=== PATIENT | female | born 1990 | race Caucasian/White ===

== ENCOUNTER 2018-04-21 00:43 | Outpatient (CLI) | payer BC, SELFPAY ==
--- NOTE | 2018-04-21 13:48 | DI.US_ITS ---
SYMPTOMS/DIAGNOSIS: LEFT BREAST LUMP/MASS, N63.20 LEFT BREAST ULTRASOUND: Targeted left breast ultrasound was performed. There are scattered foci of breast tissue seen in the left breast at the 12 o'clock position 2 cm from the nipple. There is an ovoid, hypoechoic, radially oriented avascular nodule present. This has a benign appearance. This may represent isolated breast tissue. A fibroadenoma cannot be excluded. Note is also made of a 0.4 x 0.3 x 0.2 cm cyst at the 1 o'clock position 1 cm from the nipple. No suspicious cystic or solid masses are seen sonographically. The findings were discussed with the patient on the date of the examination. IMPRESSION: 1. No suspicious cystic or solid masses seen sonographically. 2. Benign-appearing hypoechoic ovoid nodular area at the 12 o'clock position 2 cm from the nipple. Differential considerations include foci of isolated breast tissue versus a benign lesion such as a fibroadenoma. 3. A 0.4 cm cyst at the 1 o'clock position of the left breast. The findings were discussed with the patient on the date of the examination.
== END 2018-04-21 01:03 ==
PROVIDERS: PCP Physician Assistant Medical; Visit Provider Nurse Practitioner Family
DX: N63.20 Unspecified lump in the left breast, unspecified quadrant (principal); N60.02 Solitary cyst of left breast; D24.2 Benign neoplasm of left breast
CPT/HCPCS: 76642

== ENCOUNTER 2018-09-15 11:44 | Outpatient (REF) | payer BC, SELFPAY ==
--- NOTE | 2018-09-15 11:00 | PAPFT_PTH ---
PATIENT: Torrie De La O LOC: [facility] U#:[id number] AGE/SX: 27/F ROOM: RE09/15/[address]: FIDELINA Boles : 1990 BED: DIS: 09/15/2018 SPEC #: [id number] RECD: 09/15/18 13:10 STATUS: CHELSEA RELisa #: [id number] KHALIDA: 09/15/18 11:[address]: Yadi Anders DEPT: [facility] Cytology RECD BY: Sommer Romero ENTERED: 09/15/18 13:10 SP TYPE: PAPFT OTHR DR: Brianna Patricio Tissues: 1 - CX/ENDOCX FOR PAP SMEARS Procedures: PAP THIN PREP/UVM Screening Comments: [id number]
== END 2018-09-15 12:04 ==
LOC: LBN 11:44
PROVIDERS: PCP Physician Assistant Medical; Visit Provider Nurse Practitioner Family
DX: Z12.4 Encounter for screening for malignant neoplasm of cervix (principal)
CPT/HCPCS: 88142

== ENCOUNTER 2019-09-30 12:01 | Outpatient (CLI) | payer BC, SELFPAY ==
[2019-09-30 12:36] LABS: Abs Immature Grans 0.02 k/cumm (0.0-0.09); Absolute Basophil Count 0.01 k/cumm (0.0-0.2); Absolute Eosinophil Count 0.07 k/cumm (0.0-0.7); Absolute Lymphocyte Count 1.67 k/cumm (1.2-3.4); Absolute Monocyte Count 0.57 k/cumm (0.11-0.7); Absolute Neutrophil Count 6.19 k/cumm (1.2-6.7); Basophils % 0.1; Eosinophils % 0.8; HCT 39.9 % (36.0-46.0); HGB 13.2 g/dL (12.0-15.5); Immature Grans % 0.2 %; Lymphocytes % 19.6; Mean Corp. HGB Concentration 33.1 g/dL (32.0-36.0); Mean Corpuscular Hemoglobin 30.8 pg (27.0-33.0); Mean Platelet Volume 10.2 fL (8.0-11.0); Monocytes % 6.7; Neutrophils % 72.6; Platelet Count 304 x1000/uL (130-400); RBC 4.29 m/cumm (4.00-5.20); RBC Distribution Width 12.9 % (11.7-14.6); White Blood Cell Count 8.53 k/cumm (4.4-10.8)
[2019-09-30 14:07] LABS: TSH (W/Ref FT4) 1.08 uIU/mL (0.36-3.74)
[2019-09-30 14:32] LABS: *AMPHETAMINES SCREEN URINE Negative (Negative); *BARBITURATES SCREEN URINE Negative (Negative); *BENZODIAZEPINES SCREEN URINE Negative (Negative); Cannabinoids THC Negative (Negative); Cocaine Screen,Urine Negative (Negative); METHADONE URINE SCREEN Negative (Negative); OPIATES URINE SCREEN Negative (Negative)
[2019-09-30 14:33] LABS: Tricyclic Antidepressants Negative (Negative)
[2019-10-01 09:30] LABS: Hepatitis B Surface Ag Negative (Negative)
[2019-10-01 10:09] LABS: HIV-1/2 Ag & Ab Screen Negative (Negative)
[2019-10-01 10:23] LABS: Hepatitis C Ab w Rflx HCV PCR Negative (Negative)
[2019-10-01 11:24] LABS: Varicella IgG Antibody Positive (See Note)
[2019-10-01 11:28] LABS: Rubella IgG Ab (UVM) Positive (See Note)
[2019-10-02 14:12] LABS: Syphilis Total Ab w/Reflex Nonreactive (Nonreactive)
[2019-10-06 16:34] LABS: Buprenorphine Negative; Norbuprenorphine Negative
== END 2019-09-30 12:21 ==
PROVIDERS: PCP Nurse Practitioner Family; Visit Provider Advanced Practice Midwife
DX: Z34.91 Encounter for supervision of normal pregnancy, unspecified, first trimester (principal); Z11.59 Encounter for screening for other viral diseases; Z11.4 Encounter for screening for human immunodeficiency virus [HIV]; Z01.84 Encounter for antibody response examination
CPT/HCPCS: 36415; 80307; 86787; 86803; 86850; 86900; 86901; 87340; 87389; 84443; 85025; 86762; 86780

== ENCOUNTER 2019-10-06 02:14 | Outpatient (CLI) | payer BC, SELFPAY ==
[2019-10-06 09:08] LABS: HGB 13.4 g/dL (12.0-15.5); Mean Corp. HGB Concentration 33.5 g/dL (32.0-36.0); Mean Corpuscular Hemoglobin 30.9 pg (27.0-33.0); Mean Corpuscular Volume 92.4 fL (80-95); Mean Platelet Volume 9.9 fL (8.0-11.0); Platelet Count 333 x1000/uL (130-400); RBC 4.33 m/cumm (4.00-5.20); RBC Distribution Width 12.6 % (11.7-14.6); White Blood Cell Count 7.79 k/cumm (4.4-10.8)
[2019-10-06 09:10] LABS: Glucose,1 Hr (Glucola) 85 mg/dL (80-140)
== END 2019-10-06 02:34 ==
PROVIDERS: PCP Nurse Practitioner Family; Visit Provider Advanced Practice Midwife
DX: Z34.91 Encounter for supervision of normal pregnancy, unspecified, first trimester (principal)
CPT/HCPCS: 36415; 82950; 85027

== ENCOUNTER 2019-11-05 13:29 | Outpatient (REF) | payer BC, SELFPAY ==
[2019-11-06 14:11] LABS: Chlamydia Result Negative (Negative); GC Result Negative (Negative)
== END 2019-11-05 13:49 ==
LOC: LBN 13:29
PROVIDERS: PCP Nurse Practitioner Family; Visit Provider Obstetrics & Gynecology
DX: Z11.3 Encounter for screening for infections with a predominantly sexual mode of transmission (principal)
CPT/HCPCS: 87491; 87591

== ENCOUNTER 2019-12-04 04:29 | Outpatient (CLI) | payer BC, SELFPAY ==
--- NOTE | 2019-12-04 06:30 | DI.US_ITS ---
EXAM: US OB 2-3 TRIMESTER CLINICAL HISTORY: anatomy, , Z34.90. TECHNIQUE: Transabdominal obstetrical ultrasound performed. COMPARISON: No exams were available for comparison FINDINGS: Transabdominal obstetrical ultrasound performed. FINDINGS: Number of fetuses: One. position: Varied heart rate: 160 bpm. Placental location: Posterior. No evidence of previa. BIOMETRIC DATA: Composite Age: 20 weeks 2 days EDC: 04/20/2020 Amniotic fluid index: Amount of fluid is within normal limits. ANATOMICAL SURVEY: Within normal limits. IMPRESSION: 1. Single live intrauterine gestation as above. 2. Normal anatomic survey. DATA REPOSITORY:
== END 2019-12-04 04:49 ==
PROVIDERS: PCP Nurse Practitioner Family; Visit Provider Obstetrics & Gynecology
DX: Z34.92 Encounter for supervision of normal pregnancy, unspecified, second trimester (principal)
CPT/HCPCS: 76805; 87086

== ENCOUNTER 2019-12-04 14:43 | Outpatient (REF) | payer BC, SELFPAY | END 2019-12-04 15:03 | LOC: LBN 14:43 | PROVIDERS: PCP Nurse Practitioner Family; Visit Provider Obstetrics & Gynecology | DX: R82.90 Unspecified abnormal findings in urine (principal) | CPT/HCPCS: 87086 ==

== ENCOUNTER 2020-01-14 02:41 | Outpatient (CLI) | payer BC, SELFPAY ==
[2020-01-14 16:27] LABS: Abs Immature Grans 0.03 10^3/uL (0.0-0.06); Absolute Basophil Count 0.01 10^3/uL (0.0-0.2); Absolute Eosinophil Count 0.09 10^3/uL (0.0-0.7); Absolute Lymphocyte Count 1.59 10^3/uL (1.2-3.4); Absolute Monocyte Count 0.61 10^3/uL (0.1-0.8); Absolute Neutrophil Count 6.66 10^3/uL (1.2-6.7); Basophils % 0.1; HCT 32.6 % (36.0-46.0); HGB 10.8 g/dL (11.2-15.7); Immature Grans % 0.3; Lymphocytes % 17.7; MCH 31.2 pg (27.0-33.0); MCHC 33.1 % (32.0-36.0); MCV 94.2 fL (80-95); Monocytes % 6.8; Neutrophils % 74.1; Nucleated RBC 0 %; Platelet Count 274 10^3/uL (130-400); RBC 3.46 10^6/uL (3.93-5.22); RDW 12.8 % (11.7-14.6); RDW-SD 44.3 fL; WBC 8.99 10^3/uL (4.4-10.8)
[2020-01-14 16:39] LABS: Glucose,1 Hr (Glucola) 117 mg/dL (80-140)
== END 2020-01-14 03:01 ==
PROVIDERS: PCP Nurse Practitioner Family; Visit Provider Obstetrics & Gynecology
DX: Z34.92 Encounter for supervision of normal pregnancy, unspecified, second trimester (principal)
CPT/HCPCS: 36415; 82950; 85025

== ENCOUNTER 2020-02-01 02:16 | Outpatient (CLI) | payer BC, SELFPAY ==
--- NOTE | 2020-02-01 06:15 | DI.US_ITS ---
EXAM: US OB MATHEUS WEIGHT CLINICAL HISTORY: Size greater than dates,z34.90. TECHNIQUE: Transabdominal obstetrical ultrasound performed. COMPARISON: US US OB 2-3 TRIMESTER from 12/04/2019 FINDINGS: Transabdominal obstetrical ultrasound performed. FINDINGS: Number of fetuses: One. position: Cephalic. Placental location: Posterior. No evidence of previa. BIOMETRIC DATA: EFW: 1424 grms 89% Composite Age: 29 weeks 5 days EDC: 04/13/2020 Heart Rate: 147BPM Amniotic fluid index: 18.8 cm. Visually, amount of fluid is within normal limits. IMPRESSION: 1. Single live intrauterine gestation as above. 2. Estimated weight is 1424gms. 3. Amniotic fluid index is 18.8 cm. Visually within normal limits. DATA REPOSITORY:
== END 2020-02-01 02:36 ==
PROVIDERS: PCP Nurse Practitioner Family; Visit Provider Obstetrics & Gynecology
DX: Z34.93 Encounter for supervision of normal pregnancy, unspecified, third trimester (principal)
CPT/HCPCS: 76816

== ENCOUNTER 2020-03-23 08:32 | Outpatient (CLI) | payer BC, SELFPAY ==
--- OUTSIDE RECORDS SUMMARY | 2020-03-23 08:36 | XMS_ITS ---
:1990 External Reference #:[id number] Author Care Team Providers Name Role Phone Andrei Primary Care Provider Unavailable Allergies Code Code System Name Reaction Severity Status Onset [place] Abdominal Pain Moderate Active ? Pecan Nut Hives Moderate Active ? Medications Name Status Start Date Stop Date ? ? amoxicillin 875 mg-potassium clavulanate Active ? Not available 125 mg tablet fexofenadine 60 mg tablet Active ? Not av ailable fluticasone propionate 50 mcg/actuation Active ? Not available nasal spray,suspension [place] (28) 0.15 mg-0.03 mg tablet Active ? Not available naproxen 500 mg tablet Active ? Not avail able ranitidine 150 mg tablet Active ? Not mariano ilable sertraline 50 mg tablet Active ? Not avai lable sumatriptan 100 mg tablet Active ? Not av ailable Problems Name Status Onset Date Source ? Eczema Active 12/31/2017 ? Fatigue Active 12/31/2017 ? Eruption Active 12/31/2017 ? Headache Active 01/30/2018 ? Dietary Management Surveillance Active 01/30/2018 ? Hyperlipidemia Active 05/05/2018 ? Fibrocystic Disease of Breast Active 05/05/2018 ? Procedures None recorded. Results Lab Results None recorded. Past Encounters None recorded. Social History Tobacco Smoking Status Never Smoker Vaccine List Vaccine Type Hep A, pediatric, unspecified formulatio n 04/01/1995 Hep B, adolescent/high risk 04/01/1996 Hep C 04/01/1996 HPV9 09/29/2000 MMR 09/29/2006 Plan of Care Reminders Provider Appointments None ? ? recorded. Lab None ? ? recorded. Referral None ? ? recorded. Procedures None ? ? recorded. Surgeries None ? ? recorded. Imaging None ? ? recorded. Vitals 03/13/2018 02:00PM ESTABLISHED PATIENT 30 Height Weight BMI 5 ft 5.5 in 173 lbs 16 oz 28.5 kg/m2 01/30/2018 11:00AM ESTABLISHED PATIENT 45 Height Weight BMI 5 ft 5.5 in 172 lbs 9.6 oz 28.3 kg/m2 12/12/2017 01:00PM NEW PATIENT 90 Height Weight BMI Blood Pressure 5 ft 5.5 in 181 lbs 29.7 kg/m2 120/70 mm[Hg]
[2020-03-23 14:01] VITALS: BP 135/91; PULSE 81; TEMP 36.9
[2020-03-23 14:11] VITALS: BP 135/91; PULSE 81
--- NOTE | 2020-04-27 14:11 | W.OBNST ---
Date of service: 04/27/20 Time of Service: 14:16 NST Evaluation Reason for NST Reasons for Nonstress Test: DECREASED MOVEMENT Gestational Age Gestational Age in Weeks and Days: 40 Weeks and 0Days Test and Monitor Explained Test/Monitor Explained: Test Explained, Monitor Explained and Patient Verbalized Understanding Vital Signs Blood Pressure: 135/91 Pulse: 81 Temperature: 98.4 F Urine Results Urine Protein: Negative Urine Ketones: Negative Urine Glucose: Negative Urine Blood: Negative NST Information Date on Monitor: 03/23/20 Time on Monitor: 14:04 NST Interventions: None and PO Hydration NST Evaluation Patient States Movement: Present Variability: Moderate 6-25 bpm Accelerations: 15x15 Decelerations: None NST Results: Reactive Note NST Note Note: Pt called earlier report decreased movement. She stated that she was feeling very subtle movements and was concerned that there was something wrong with the . Pt is reassured by findings on today's BC visit. She was instructed in movement and kick counts. She will f/u at regularly scheduled appointment. NST Reviewed and Verified by: Lida Odom
[2020-04-27 14:16] VITALS: BP 135/91; PULSE 81; TEMP 36.9
== END 2020-03-23 14:54 ==
LOC: BCD 08:49 → OBS 12:40
PROVIDERS: PCP Nurse Practitioner Family; Visit Provider Obstetrics & Gynecology Gynecology
DX: O36.8130 Decreased fetal movements, third trimester, not applicable or unspecified (principal); Z3A.35 35 weeks gestation of pregnancy
CPT/HCPCS: 59025

== ENCOUNTER 2020-03-30 15:54 | Outpatient (REF) | payer BC, SELFPAY ==
[2020-03-30 16:47] LABS: *AMPHETAMINES SCREEN URINE Negative (Negative); *BARBITURATES SCREEN URINE Negative (Negative); *BENZODIAZEPINES SCREEN URINE Negative (Negative); Cannabinoids THC Negative (Negative); Cocaine Screen,Urine Negative (Negative); METHADONE URINE SCREEN Negative (Negative); OPIATES URINE SCREEN Negative (Negative)
[2020-03-30 16:51] LABS: Tricyclic Antidepressants Negative (Negative)
[2020-04-07 15:42] LABS: Buprenorphine Negative; Norbuprenorphine Negative
== END 2020-03-30 16:14 ==
LOC: LBN 15:54
PROVIDERS: PCP Nurse Practitioner Family; Visit Provider Obstetrics & Gynecology
DX: Z34.93 Encounter for supervision of normal pregnancy, unspecified, third trimester (principal); Z36.85 Encounter for antenatal screening for Streptococcus B; Z3A.36 36 weeks gestation of pregnancy
CPT/HCPCS: 80307; 87081

== ENCOUNTER 2020-04-21 09:52 | Observation (INO) | payer BC, SELFPAY ==
[2020-04-21 10:05] VITALS: BP 110/81; PULSE 99
[2020-04-21 10:06] VITALS: RESP 16; TEMP 37
[2020-04-21 10:17] LABS: HCT 37.9 % (36.0-46.0); HGB 12.8 g/dL (11.2-15.7); MCH 30.9 pg (27.0-33.0); MCHC 33.8 % (32.0-36.0); MCV 91.5 fL (80-95); MPV 10.2 fL (8.0-11.0); Platelet Count 243 10^3/uL (130-400); RBC 4.14 10^6/uL (3.93-5.22); RDW 12.9 % (11.7-14.6); WBC 8.76 10^3/uL (4.4-10.8)
--- NOTE | 2020-04-21 12:26 | PGE_ITS ---
Date of service: 04/21/20 Time of Service: 12:26 Pelvic Exam Dilation: 1 Effacement (%): 25 station: -2 Cervix Position: mid Consistency: medium Vaginal Exam Presentation: Cephalic Pooling: Negative Contractions Monitor Mode: External Contraction Frequency(min): 3 Contraction Duration(sec): 45 Intensity: Mild/Moderate Fetus A Monitor: External (US) Presentation: Cephalic Variability: Moderate (6-25 BPM) Categories: Category I FHR Rhythm: Regular Characteristics: Normal Accelerations: 15 X 15 Decelerations: None Amniotic Membrane Status: Intact Assessment and Plan Assessment and plan (1) : Status: Acute Assessment and plan: Prodromal labor for approximately 4 hours. Minimal cervical change. Patient has been ambulatory. The plan is to have several more hours prior to next cervical check and if unchanged would recommend discharged home with expectant management. Objective Temp Pulse Resp BP 98.6 F 99 H 16 110/81 04/21/20 10:06 04/21/20 10:05 04/21/20 10:06 04/21/20 10:05 Laboratory Results WBC 8.76 10^3/uL (4.4-10.8) 04/21/20 10:10 RBC 4.14 10^6/uL (3.93-5.22) 04/21/20 10:10 Hgb 12.8 g/dL (11.2-15.7) 04/21/20 10:10 Hct 37.9 % (36.0-46.0) 04/21/20 10:10 MCV 91.5 fL (80-95) 04/21/20 10:10 MCH 30.9 pg (27.0-33.0) 04/21/20 10:10 MCHC 33.8 % (32.0-36.0) 04/21/20 10:10 RDW 12.9 % (11.7-14.6) 04/21/20 10:10 Plt Count 243 10^3/uL (130-400) 04/21/20 10:10 MPV 10.2 fL (8.0-11.0) 04/21/20 10:10 Patient ABO/Rh A Positive 04/21/20 10:10 Antibody Screen Negative 04/21/20 10:10 Subjective Patient Reports: New Complaints (Pt currently reports contractions becoming more intense.) Interval history since last seen: Pt is a 29yo G1 female who called the [facility] this morning to report onset of contractions last evening and increasing in intensity and frequency throughout the night. No SROM or vaginal bleeding. On arrival to her cervix was 25% effaced, FT, -2 station, Category FHR tracing with contractions q3-6min. I recommended observation. Interventions Other (No intervention planned at this time.) Results Hemoglobin/Hematocrit: Hgb 12.8 g/dL (11.2-15.7) 04/21/20 10:10 Hct 37.9 % (36.0-46.0) 04/21/20 10:10
--- NOTE | 2020-04-21 14:11 | NUR.NOTE ---
remains on r side with eyes closed. Nursing Note:
--- NOTE | 2020-04-21 14:53 | W.PM.OBNL1 ---
Date of service: 04/21/20 Time of Service: 14:53 Pelvic Exam Dilation: 1 Effacement (%): 25 station: -2 Position: DEDE Cervix Position: mid Consistency: medium Vaginal Exam Presentation: Cephalic Pooling: Negative Contractions Monitor Mode: External Contraction Frequency(min): 3-5 Contraction Duration(sec): 30-60 Fetus A Monitor: External (US) Heart Rate Baseline: 150 Presentation: Cephalic Variability: Moderate (6-25 BPM) Categories: Category I FHR Rhythm: Regular Characteristics: Normal Accelerations: 15 X 15 Decelerations: None Assessment and Plan Assessment and plan (1) False labor after 37 weeks of gestation without delivery: Status: Acute Assessment and plan: Patient experienced contractions mild to moderate in nature throughout the day. Essentially no cervical change. I recommended not admitting the patient and instead having her be discharged to home and we turned to center with contractions every 2 minutes apart for 2 hours. She is agreeable to the plan discharge instructions were given. Objective Temp Pulse Resp BP 98.6 F 99 H 16 110/81 04/21/20 10:06 04/21/20 10:05 04/21/20 10:06 04/21/20 10:05 Laboratory Results WBC 8.76 10^3/uL (4.4-10.8) 04/21/20 10:10 RBC 4.14 10^6/uL (3.93-5.22) 04/21/20 10:10 Hgb 12.8 g/dL (11.2-15.7) 04/21/20 10:10 Hct 37.9 % (36.0-46.0) 04/21/20 10:10 MCV 91.5 fL (80-95) 04/21/20 10:10 MCH 30.9 pg (27.0-33.0) 04/21/20 10:10 MCHC 33.8 % (32.0-36.0) 04/21/20 10:10 RDW 12.9 % (11.7-14.6) 04/21/20 10:10 Plt Count 243 10^3/uL (130-400) 04/21/20 10:10 MPV 10.2 fL (8.0-11.0) 04/21/20 10:10 Patient ABO/Rh A Positive 04/21/20 10:10 Antibody Screen Negative 04/21/20 10:10 Subjective Patient Reports: No new Complaints Interval history since last seen: Continues to report contractions, feels that they are stronger. Results Hemoglobin/Hematocrit: Hgb 12.8 g/dL (11.2-15.7) 04/21/20 10:10 Hct 37.9 % (36.0-46.0) 04/21/20 10:10
== END 2020-04-21 15:10 | disposition home or self-care (01) ==
PROVIDERS: Admitting Provider Obstetrics & Gynecology Gynecology; PCP Nurse Practitioner Family; Visit Provider Obstetrics & Gynecology Gynecology
DX: O47.1 False labor at or after 37 completed weeks of gestation (principal)
CPT/HCPCS: 36415; 85027; 86850; 86900; 86901; G0378

== ENCOUNTER 2020-04-23 01:22 | Inpatient (IN) | payer BC, SELFPAY ==
[2020-04-23] VITALS (53 sets, daily range): BP systolic 106–136; BP diastolic 59–84; PULSE 66–117; RESP 16; TEMP 36.8–37.3; O2SAT 95–100
[2020-04-23] MEDS: Normal Saline Flush 10 ML SYR IVP (02:25)
[2020-04-23 02:53] LABS: HCT 38.2 % (36.0-46.0); HGB 12.9 g/dL (11.2-15.7); MCH 30.9 pg (27.0-33.0); MCHC 33.8 % (32.0-36.0); MCV 91.6 fL (80-95); MPV 10.4 fL (8.0-11.0); Platelet Count 268 10^3/uL (130-400); RBC 4.17 10^6/uL (3.93-5.22); RDW 13.1 % (11.7-14.6); RDW-SD 43.4 fL
--- NOTE | 2020-04-23 03:50 | HPE_ITS ---
Date of service: 04/23/20 Time of Service: 03:50 OB-HPI Labor/Delivery History of Present Illness Reason for Visit: LABOR, regular contractions Chief Complaint: Uterine Contractions. SILVER Calculator Estimated Delivery Date Method Current WG Current Estimate 04/23/20 LMP (Certain) 40w 0d Other Estimates 04/24/20 Ultrasound #1 39w 6d History of Present Expected Delivery Route/Plan - MD FOB/ - [place] (first child) Specific Issues/Plan 1. Recent suicide of patient's father 2. Depression, takes Zoloft 100 mg Rx'ed by PCP x5 yrs 2a. PHQ9 score is 18, recent loss of father to suicide 2b. Pt has names of therapists and is calling to make appt's 3. PA for [place] approved, CF/SMA do not require PA 4. Chronic hemorrhoids, topical remedies discussed 5. Insomnia since became , Vistaril is not helping, adv'ed try Unisom qhs 6. Low dose ASA for nullipara & BMI 31 7. Early and glucola @ 26w nl. No further testing needed. Review of Systems Narrative: Patient is a 29-year-old female primigravida at her due date today. She has been in a latent labor for approximately 48 hours with irregular contractions. Earlier this morning, contractions became more regular approximately 2 to 3 minutes. On presentation she was approximately 3 cm more recently checked 4 cm 80% -2 station anterior soft and vertex. She has a reassuring maternal status with a category 1 heart rate tracing All systems reviewed & are unremarkable except as noted in HPI and below Eyes Eyes: Reports system reviewed and no additional complaints, except as documented Cardiovascular Cardiovascular: Reports system reviewed and no additional complaints, except as documented Respiratory Respiratory: Reports system reviewed and no additional complaints, except as documented Gastrointestinal Gastrointestinal: Reports system reviewed and no additional complaints, except as documented Psychiatric Psychiatric: Reports system reviewed and no additional complaints, except as documented [facility] Medical History (Updated 04/21/20 @ 14:56 by Lida Odom MD) Contraception (08/01/17) False labor after 37 weeks of gestation without delivery Family History Mother Fibrocystic breast changes Father Essential hypertension Grandfather Stomach cancer maternal Maternal Uncle Myocardial infarction Social History (Updated 09/15/18 @ 10:59 by Yadi Anders NP) Smoking/Tobacco Use Status: Never Smoking risk assessment performed?: Yes Alcohol Intake: never Drug use: Never Substance use type: does not use current occupation: Therapist at [employer] Female Reproductive History Menstrual control method: pills History History 1 Para 0 Hx # Term Pregnancies 0 Multiple births 0 Hx # Pregnancies 0 Ectopic pregnancies 0 AB induced 0 Hx Number of Living Children 0 AB spontaneous 0 Meds Home Medications and Allergies Home Medications Medication Instructions Recorded Confirmed Type PNV no.151-iron 27 mg-folic 800 1 cap PO DAILY cap 09/14/19 04/23/20 History mcg-omega3 260 je-ays-flu-fish capsule cetirizine 10 mg capsule 10 mg PO DAILY 09/14/19 04/23/20 History folic acid 1 mg tablet 1 mg PO DAILY 09/14/19 04/23/20 History sertraline 25 mg tablet 100 mg PO DAILY tab-cap 09/14/19 04/23/20 History aspirin 81 mg tablet,delayed 81 mg PO DAILY #90 tab 09/30/19 04/23/20 Rx release magnesium 250 mg tablet 250 mg PO DAILY 02/18/20 04/23/20 History Allergies Allergy/AdvReac Type Severity Reaction Status Date / Time seasonal allergies Allergy Intermediate Uncoded 04/23/20 02:47 Exam Physical Exam Vital signs: Temp Pulse BP Pulse Ox 99.1 F 105 H 119/84 98 04/23/20 01:56 04/23/20 02:02 04/23/20 02:01 04/23/20 02:02 Detailed Labor and Delivery Exam [place] Score: Cervical Points Exam 0 1 2 3 Dilation Closed 1-2cm 3-4 cm 5-6cm Effacement 0-30% 40-50% 60-70% 80% Consistency Firm Medium Soft Station -3 -2 -1,0 +1,+2 Position Posterior Mid Anterior Fetus A Heart Rate Baseline: 140 Monitor Accelerations: 15 X 15 Monitor Decelerations: None Variability: Moderate (6-25 BPM) Presentation: Cephalic Categories: Category I Est. Weight: 8 lb Assessment Note: Category 1 strip HEENT Exam HEENT Exam: Normal Cardiovascular Exam Cardiovascular Exam: Normal Abdominal Exam Abdominal Exam: Normal Exam Exam: Normal Extremities Exam Extremities Exam: Normal Detailed Extremities Exam Extremities: Present edema (1+); Absent cyanosis and clubbing Skin Exam Skin Exam: Normal Psychiatric Exam Psychiatric Exam: Normal Results Results Group Beta Strep: Negative Blood Type: A+ Rubella Status: Immune Varicella Immunity: Immune Abnormal Lab Findings: Abnormal Labs 04/23/20 02:30 WBC 11.00 H Risk Assessment Risk for Shoulder Dystocia Historical/Initial OB: POSITIVE FOR: Pre- BMI>30; NEGATIVE FOR: Pelvic Abnormality, Previous Shoulder Dystocia or Previous Macrosomia Risk for Pre-Eclampsia Daily Dose ASA Indicated: No Date Initiated/Initials: to begin low dose ASA @ 12 wks. JK Yes, if one or more: NEGATIVE FOR: Hx Pre-E/Gest HTN, Chronic HTN, Multiple Gestation, Pre-gestational DM, Renal Disease, Systemic Lupus or APA Syndrome Yes, if 2 or more: POSITIVE FOR: Nulliparity and BMI>30; NEGATIVE FOR: Age>= 35 yrs, >10yr btwn pregnancies, ethinicty, Mother/Sister w/ Pre-E or Previous IUGR Risk for Post- Hemorrhage Initial: NEGATIVE FOR: Multiple Gestation, Previous PPH, Known Clotting Deficiency, Grand Multiparity or Anticoagulation At Risk?: No Risks Reviewed Risks Reviewed Upon Admission: Yes
--- NOTE | 2020-04-23 03:56 | W.PM.PROGNOT ---
Date of Service Date of service: 04/23/20 Time of Service: 03:56 Subjective Subjective Interval history since last seen: Patient desires epidural for pain control. Anesthesia will be notified. Objective Last Vital Signs Temp 99.1 F 04/23/20 01:56 Pulse 105 H 04/23/20 02:02 BP 119/84 04/23/20 02:01 Pulse Ox 98 04/23/20 02:02 Laboratory Results - last 24 hr 04/23/20 02:30 WBC 11.00 H RBC 4.17 Hgb 12.9 Hct 38.2 MCV 91.6 MCH 30.9 MCHC 33.8 RDW 13.1 Plt Count 268 MPV 10.4
[2020-04-23] MEDS: Lactated Ringers 500 ML IV ×3 (04:40→14:07)
[2020-04-23] MEDS: FentaNYL/ROPIvacaine 2 mcg/ml and 0.1% 200 ML CADD Cassette EP ×2 (05:07→16:45)
--- NOTE | 2020-04-23 07:57 | W.PM.PROGNOT ---
Date of Service Date of service: 04/23/20 Time of Service: 08:00 Assessment and Plan Assessment and plan (1) Normal labor and delivery: Status: Acute Assessment and plan: Normal labor progress with epidural for pain control. Port wine fluid. Will monitor tolerance of labor. (2) 40 weeks gestation of : Status: Acute Subjective Subjective Patient reports: no new complaints, feels better, nausea and vomiting Interval history since last seen: Comfortable with Epidural Exam Narrative Exam Narrative: SVE, 5, 80%, -1, BBOW. AROM, port wine fluid. Category 1 strip. Contractions every 3 minutes Objective Last Vital Signs Temp 98.6 F 04/23/20 05:44 Pulse 100 H 04/23/20 07:49 BP 106/61 04/23/20 07:49 Pulse Ox 97 04/23/20 07:12 Laboratory Results - last 24 hr 04/23/20 04/23/20 02:30 02:30 WBC 11.00 H RBC 4.17 Hgb 12.9 Hct 38.2 MCV 91.6 MCH 30.9 MCHC 33.8 RDW 13.1 Plt Count 268 MPV 10.4 Patient ABO/Rh A Positive Antibody Screen Negative
--- NOTE | 2020-04-23 11:17 | W.PM.OBNL1 ---
Date of service: 04/23/20 Time of Service: 11:17 Pelvic Exam Dilation: 6 Effacement (%): 100 station: -1 Position: DEDE Cervix Position: anterior Consistency: medium Contractions Monitor Mode: External Contraction Frequency(min): 3 Intensity: Strong Fetus A Monitor: External (US) Heart Rate Baseline: 130 Presentation: Cephalic Variability: Moderate (6-25 BPM) Categories: Category I FHR Rhythm: Regular Accelerations: 15 X 15 Decelerations: None Assessment and Plan Assessment and plan (1) Normal labor and delivery: Status: Acute Assessment and plan: Normal labor pattern with steady progress. Good pain control with Epidural. Anticipate Objective Abnormal lab results 04/23/20 Range/Units 02:30 WBC 11.00 H (4.4-10.8) 10^3/uL Temp Pulse BP Pulse Ox 98.6 F 85 122/74 97 04/23/20 05:44 04/23/20 10:10 04/23/20 10:10 04/23/20 07:12 Laboratory Results WBC 11.00 10^3/uL (4.4-10.8) H 04/23/20 02:30 RBC 4.17 10^6/uL (3.93-5.22) 04/23/20 02:30 Hgb 12.9 g/dL (11.2-15.7) 04/23/20 02:30 Hct 38.2 % (36.0-46.0) 04/23/20 02:30 MCV 91.6 fL (80-95) 04/23/20 02:30 MCH 30.9 pg (27.0-33.0) 04/23/20 02:30 MCHC 33.8 % (32.0-36.0) 04/23/20 02:30 RDW 13.1 % (11.7-14.6) 04/23/20 02:30 Plt Count 268 10^3/uL (130-400) 04/23/20 02:30 MPV 10.4 fL (8.0-11.0) 04/23/20 02:30 Patient ABO/Rh A Positive 04/23/20 02:30 Antibody Screen Negative 04/23/20 02:30 Subjective Interval history since last seen: Pain in right leg with contractions. Minimal pressure Results Hemoglobin/Hematocrit: Hgb 12.9 g/dL (11.2-15.7) 04/23/20 02:30 Hct 38.2 % (36.0-46.0) 04/23/20 02:30 Abnormal Lab Findings: Abnormal Labs 04/23/20 02:30 WBC 11.00 H
[2020-04-23] MEDS: Ondansetron 4 MG/2 ML VIAL IVP (13:12)
--- NOTE | 2020-04-23 15:48 | W.PM.OBNL1 ---
Date of service: 04/23/20 Time of Service: 15:48 Pelvic Exam Dilation: 8 Effacement (%): 100 station: 0 Position: DUDLEY Cervix Position: anterior Consistency: soft Contractions Monitor Mode: External Contraction Frequency(min): 3 Contraction Duration(sec): 60 Intensity: Strong Fetus A Monitor: External (US) Heart Rate Baseline: 130 Presentation: Cephalic Variability: Moderate (6-25 BPM) Categories: Category I Accelerations: 15 X 15 Decelerations: None Assessment and Plan Assessment and plan (1) Normal labor and delivery: Status: Acute Assessment and plan: Steady labor progress. Anticipate 2nd stage in the near future Objective Abnormal lab results 04/23/20 Range/Units 02:30 WBC 11.00 H (4.4-10.8) 10^3/uL Temp Pulse BP Pulse Ox 98.6 F 85 122/74 97 04/23/20 05:44 04/23/20 10:10 04/23/20 10:10 04/23/20 07:12 Laboratory Results WBC 11.00 10^3/uL (4.4-10.8) H 04/23/20 02:30 RBC 4.17 10^6/uL (3.93-5.22) 04/23/20 02:30 Hgb 12.9 g/dL (11.2-15.7) 04/23/20 02:30 Hct 38.2 % (36.0-46.0) 04/23/20 02:30 MCV 91.6 fL (80-95) 04/23/20 02:30 MCH 30.9 pg (27.0-33.0) 04/23/20 02:30 MCHC 33.8 % (32.0-36.0) 04/23/20 02:30 RDW 13.1 % (11.7-14.6) 04/23/20 02:30 Plt Count 268 10^3/uL (130-400) 04/23/20 02:30 MPV 10.4 fL (8.0-11.0) 04/23/20 02:30 Patient ABO/Rh A Positive 04/23/20 02:30 Antibody Screen Negative 04/23/20 02:30 Subjective Patient Reports: No new Complaints Interval history since last seen: Comfortable with Epidural. Some nausea. Straight cath done for 100 cc Results Hemoglobin/Hematocrit: Hgb 12.9 g/dL (11.2-15.7) 04/23/20 02:30 Hct 38.2 % (36.0-46.0) 04/23/20 02:30 Abnormal Lab Findings: Abnormal Labs 04/23/20 02:30 WBC 11.00 H
[2020-04-23] MEDS: Lidocaine 1% Multi-Dose 20 ML VIAL IJ (19:40)
--- NOTE | 2020-04-23 20:34 | OBVDS_ITS ---
Date of service: 04/23/20 Time of Service: 20:34 OB Labor/ Delivery Information Baby A Delivery Delivery Method: Spontaneaous Presentation: Cephalic Vertex Position: Right Occipital Posterior Cord Description-Baby A: 3 Vessels Amniotic Fluid: [place] Tinged Estimated Blood Loss: 500 Delivery Outcome: Liveborn Note: Patient is a 29-year-old female who has had ongoing care in our office. She had had latent labor for approximately 2 days prior to her presentation. She presented in active labor on her due date at 40 weeks. She progressed through a normal course of labor and received an epidural for pain relief. She had artificial rupture of membranes for blood-tinged fluid a pproximately 5 cm. She progressed to the point that she was completely dilated. With good maternal effort, over the course of approximately 2 hours she pushed the vertex over the perineum. There was no evidence of nuchal cord and the shoulders followed with ease. Three-vessel cord was noted. The was handed off to the waiting mother and after approximately 1 minute the cord was clamped x2 and cut,. Cord blood sample was obtained as was a segment for cord gases if needed. The placenta delivered spontaneously and was found to be intact. On inspection of the cervix, perineum, and vagina there was noted to be a second-degree midline perineal laceration which was repaired after infiltration of 1% lidocaine for pain control. Both excellent hemostasis and cosmesis were achieved. Qualitative blood loss 500 cc Findings: Delivery of a viable male weight and Apgars to be determined Complications: None apparent Providers Doctor: Mary Roberson Pre Sales Network Engineer: Angel Rogers Nurse: Meena Christensen Nurse: Rex Alvarez Labor/Delivery Information Number of Babies in Womb: 1 Steroids Given: None Reason Steroids Not Administered: N/A Group Beta Strep: Negative Antibiotics Administered: No Rubella Status: Immune Blood Type: A+ Varicella Immunity: Immune Maternal Complications: None Shoulder Dystocia: No Stages of Labor Delivery Date-Baby A: 04/23/20 Infant Delivery Time-Baby A: 19:21 Placenta Delivery Date-Baby A: 04/23/20 Placenta Delivery Time-Baby A: 19:27 Labor-Stage 3 Duration: 6 minutes Placenta Cultured: No Placenta Status: Delivered Baby A Gender: Female Gestational Status: Term (39-41.6 wks) Gestational Age in Weeks/Days: 40 Weeks and 0 Days Score-1 Minute Interval(Baby A) Heart Rate-1 minute: 100 BPM or Greater Respiratory Effort- 1 minute: Spontaneous/Strong Cry Muscle Tone-1 minute: Active Movement Reflex Response-1 minute: Prompt Response Color-1 minute: Bluish Hands or Feet Total Score-1 minute: 9 Score-5 Minute Interval(Baby A) Heart Rate- 5 minute: 100 BPM or Greater Respiratory Effort-5 minute: Spontaneous/Strong Cry Muscle Tone-5 minute: Active Movement Reflex Response-5 minute: Prompt Response Color-5 minute: Bluish Hands or Feet Total Score- 5 minute: 9 Interventions Pain Management Interventions: Epidural ./ Repair of Laceration Type: Perineal , Laceration Extension: Second Degree . Sponge Count Correct: No Sponges Placed in Vagina , Sharp Count Correct: Yes . Laceration Repair Note: Inspection of the perineum, vagina, and cervix there is noted to be a second-degree midline laceration at the perineum. This was repaired with 3-0 Vicryl hemostasis achieved with good cosmetic result after infiltration of 1% lidocaine.
[2020-04-23] MEDS: Ibuprofen 600 MG TAB PO (21:08)
[2020-04-23] MEDS: Oxytocin/Normal Saline 30 UNIT/500 ML BAG 95 UNITS IV (21:32)
[2020-04-23] MEDS: SERTRALINE 100 MG TAB PO (23:47)
[2020-04-24 00:48] LABS: COVID-19 RT-PCR UVMMC Result Negative (Negative)
[2020-04-24 07:27] LABS: HCT 29.4 % (36.0-46.0); HGB 10.1 g/dL (11.2-15.7); MCH 31.3 pg (27.0-33.0); MCHC 34.4 % (32.0-36.0); MPV 10.6 fL (8.0-11.0); Platelet Count 224 10^3/uL (130-400); RBC 3.23 10^6/uL (3.93-5.22); RDW 13.3 % (11.7-14.6); RDW-SD 43.8 fL; WBC 13.14 10^3/uL (4.4-10.8)
--- NOTE | 2020-04-24 07:36 | OBPPV_ITS ---
Date of service: 04/24/20 Time of Service: 07:36 Assessment and Plan Assessment and plan (1) (normal spontaneous vaginal delivery): Status: Acute Assessment and plan: S/P . Doing well. D/C today or in AM Subjective Subjective Interval history: Patient seen. Doing great. Breast feeding. Bonding well Patient comments: No complaints, Pain well controlled, Tolerating diet and Flatus present [place] baby status: Doing well, Nursing well and Strong Bonding Observed [place] feeding status: Exclusively breast feeding Exam Physical Exam Vital signs: Temp Pulse Resp BP Pulse Ox 98.2 F 90 16 107/66 100 04/23/20 22:53 04/23/20 23:55 04/23/20 23:55 04/23/20 23:55 04/23/20 22:53 Constitutional Constitutional: no acute distress Respiratory Exam Respiratory Exam: Normal Cardiovascular Exam Cardiovascular Exam: Normal Abdominal Exam Comments: NOrmal. Fundus firm Extremities Exam Extremity Exam: Edema (1+); negative Calf Tenderness Skin Exam Skin Exam: Normal DetailedPsychiatric Exam Psych Exam: Normal Affect, Normal Thougth Process, Cooperative, Good Insight and Good Judgement Results Hemoglobin/Hematocrit: Hgb 12.9 g/dL (11.2-15.7) 04/23/20 02:30 Hct 38.2 % (36.0-46.0) 04/23/20 02:30 Abnormal Lab Findings: Abnormal Labs 04/23/20 02:30 WBC 11.00 H
[2020-04-24] MEDS: Docusate Sodium 100 MG CAP PO ×2 (07:42→20:59)
--- NOTE | 2020-04-24 07:44 | W.PM.OBDISCH ---
Date of service: 04/24/20 Time of Service: 07:44 DS: Diagnosis Discharge Diagnosis (1) (normal spontaneous vaginal delivery): Status: Acute Discharge Plan Disposition Patient Disposition: HOME Condition: Good Discharge Details Reason For Visit: LABOR, regular contractions Admit Date/Time: 04/23/20 01:22 Admit Provider: Mary Roberson Attending Provider: Mary Roberson Primary Care Provider: Amisha Lyons Hospital Course Hospital Course: Patient presented at 40 weeks, in labor. Normal labor course. Epidural for pain control. Uncomplicated delivery. Female , 8# #oz. Breast feeding. Stable for D/C Home Meds and New Rx's Prescriptions: New ibuprofen [IBU] 800 mg tablet 800 mg PO Q8H PRNQty: 30 RF: 1 docusate sodium [Colace] 100 mg capsule 100 mg PO BID Qty: 20 RF: 0 Continued All Day Allergy (cetirizine) 10 mg capsule 10 mg PO DAILY RF: 0 folic acid 1 mg tablet 1 mg PO DAILY RF: 0 Multi-DHA(with vit K) 27 mg iron-800 mcg-260 mg capsule 1 cap PO DAILY RF: 0 aspirin [Adult Low Dose Aspirin] 81 mg tablet,delayed release (DR/EC) 81 mg PO DAILY Qty: 90 RF: 3 magnesium 250 mg tablet 250 mg PO DAILY RF: 0 sertraline [Zoloft] 25 mg tablet 100 mg PO DAILY RF: 0 Discharge Instructions Stand Alone Forms: BC Post Vaginal Deliver Activity:: Activity as Tolerated Equipment/Supplies:: No Equipment Needed Diet:: As Tolerated Discharge Orders Discharge Orders: Discharge Order (Routine); Ordered 04/24/20 Ordered By: Mary Roberson OB:DS Summary Summary Vaginal Delivery Method: Spontaneaous Episiotomy Description: Midline Laceration Description: Perineal Laceration Extension: Second Degree Contraception Discussed Contraception Discussed: Yes, Gender-Baby A: Female weight: 8 lb 3.396 oz Status at Discharge Functional status at discharge: independent ambulation Overall status at discharge: patient is back to baseline Mental Status: mental status grossly normal Speech and Movement: speech and movement normal Mood: congruent mood Affect: normal affect Exam Physical Exam Vital signs: Temp Pulse Resp BP Pulse Ox 98.2 F 90 16 107/66 100 04/23/20 22:53 04/23/20 23:55 04/23/20 23:55 04/23/20 23:55 04/23/20 22:53 Constitutional Comments: See physical exam in progress note 04/24/20 [facility] Medical History Contraception (08/01/17) False labor after 37 weeks of gestation without delivery (normal spontaneous vaginal delivery) Family History Mother Fibrocystic breast changes Father Essential hypertension Grandfather Stomach cancer maternal Maternal Uncle Myocardial infarction Social History Smoking/Tobacco Use Status: Never Smoking risk assessment performed?: Yes Alcohol Intake: never Drug use: Never Substance use type: does not use 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 Reproductive History Menstrual control method: pills History History 1 Para 0 Hx # Term Pregnancies 0 Multiple births 0 Hx # Pregnancies 0 Ectopic pregnancies 0 AB induced 0 Hx Number of Living Children 0 AB spontaneous 0 DS: Data Vitals/I&O Vitals and I&O: Vital Signs Temperature 98.2 F 04/23/20 22:53 Pulse 90 04/23/20 23:55 Pulse Rhythm Regular 04/23/20 20:30 Respiratory Rate 16 04/23/20 23:55 Respiratory Depth Normal 04/23/20 20:30 Blood Pressure 107/66 04/23/20 23:55 Blood Pressure Mean 79 04/23/20 23:55 Pulse Oximetry 100 04/23/20 22:53 Pain Level 0 04/23/20 21:08 Intake & Output 04/23/20 04/23/20 04/24/20 11:59 23:59 11:59 Intake Total 1510 / 1510 0 / 1510 Output Total 150 / 925 775 / 925 700 / 700 Balance 1360 / 585 -775 / 585 -700 / -700 Weight 224 lb 13.944 oz Intake: IV 1010 / 1010 0 / 1010 Oral 500 / 500 Output: Urine 150 / 425 275 / 425 700 / 700 Output, Blood Loss 500 / 500 Data Completed and Pending Labs on day of discharge: Labs from last 24 hours 04/24/20 07:08 WBC 13.14 H RBC 3.23 L Hgb 10.1 L D Hct 29.4 L D MCV 91.0 MCH 31.3 MCHC 34.4 RDW 13.3 Plt Count 224 MPV 10.6
[2020-04-24 07:50] VITALS: BP 137/78; PULSE 96; RESP 18; TEMP 36.8; O2SAT 100
[2020-04-24] MEDS: Ibuprofen 600 MG TAB PO ×2 (08:00→15:20)
[2020-04-24 20:02] VITALS: BP 112/65; PULSE 86; RESP 16; TEMP 37.2; O2SAT 97
[2020-04-24] MEDS: SERTRALINE 100 MG TAB PO (20:58)
[2020-04-24] MEDS: Cetirizine 10 MG TAB PO (20:58)
[2020-04-25] MEDS: Acetaminophen 325 MG TAB 650 MG PO (07:48)
[2020-04-25] MEDS: Ibuprofen 600 MG TAB PO (07:48)
[2020-04-25 07:50] VITALS: BP 114/74; PULSE 80; RESP 16; TEMP 36.8
--- NOTE | 2020-04-25 08:14 | W.PM.OBPNV1 ---
Date of service: 04/25/20 Time of Service: 08:14 Assessment and Plan Assessment and plan (1) (normal spontaneous vaginal delivery): Status: Acute Assessment and plan: Patient is day #1 status post normal spontaneous vaginal delivery. She is doing well. Mood is appropriate. Pain is well controlled. She will be discharged home today. She will be seen back in the office in approximately 2 weeks time. We did discuss contraception and she would like to restart her oral contraceptives at the appropriate interval. Subjective Subjective Patient comments: No complaints, Pain well controlled and Tolerating diet [place] baby status: Doing well, Nursing well and Strong Bonding Observed feeding status: Exclusively breast feeding Exam Physical Exam Vital signs: Temp Pulse Resp BP Pulse Ox 99.0 F 86 16 112/65 97 04/24/20 20:02 04/24/20 20:02 04/24/20 20:02 04/24/20 20:02 04/24/20 20:02 Constitutional Constitutional: no acute distress and cooperative HEENT Exam HEENT Exam: Normal Respiratory Exam Respiratory Exam: Normal Cardiovascular Exam Cardiovascular Exam: Normal Abdominal Exam Abdomen: Other (Normal) Fundal Exam Fundus: Below Umbilicus and Firm Extremities Exam Extremity Exam: Normal and Edema (1+) Skin Exam Skin Exam: Normal Neurological Exam Neurological Exam: Normal Psychiatric Exam Psychiatric Exam: Normal DetailedPsychiatric Exam Psych Exam: Normal Affect, Normal Thougth Process, Cooperative, Good Insight, Good Judgement and Anxious Results Hemoglobin/Hematocrit: Hgb 10.1 g/dL (11.2-15.7) L D 04/24/20 07:08 Hct 29.4 % (36.0-46.0) L D 04/24/20 07:08 Abnormal Lab Findings: Abnormal Labs 04/23/20 04/24/20 02:30 07:08 WBC 11.00 H 13.14 H RBC 3.23 L Hgb 10.1 L D Hct 29.4 L D
--- NOTE | 2020-04-25 08:17 | DSE_ITS ---
Date of service: 04/25/20 Time of Service: 08:17 DS: Diagnosis Discharge Diagnosis (1) (normal spontaneous vaginal delivery): Status: Acute Discharge Plan Disposition Patient Disposition: HOME Condition: Good Discharge Details Reason For Visit: LABOR Admit Date/Time: 04/23/20 01:22 Admit Provider: Mary Roberson Attending Provider: Mary Roberson Primary Care Provider: Amisha Lyons Hospital Course Hospital Course: Patient presented at 40 weeks, in labor. Normal labor course. Epidural for pain control. Uncomplicated delivery. Female infant, 8# #oz. Breast feeding. Stable for D/C Home Meds and New Rx's Prescriptions: New ibuprofen [IBU] 800 mg tablet 800 mg PO Q8H PRNQty: 30 RF: 1 docusate sodium [Colace] 100 mg capsule 100 mg PO BID Qty: 20 RF: 0 Continued All Day Allergy (cetirizine) 10 mg capsule 10 mg PO DAILY RF: 0 folic acid 1 mg tablet 1 mg PO DAILY RF: 0 Multi-DHA(with vit K) 27 mg iron-800 mcg-260 mg capsule 1 cap PO DAILY RF: 0 aspirin [Adult Low Dose Aspirin] 81 mg tablet,delayed release (DR/EC) 81 mg PO DAILY Qty: 90 RF: 3 magnesium 250 mg tablet 250 mg PO DAILY RF: 0 sertraline [Zoloft] 25 mg tablet 100 mg PO DAILY RF: 0 Discharge Instructions Stand Alone Forms: BC Post Vaginal Deliver Activity:: Activity as Tolerated Equipment/Supplies:: No Equipment Needed Diet:: As Tolerated Discharge Orders Discharge Orders: Discharge Order (Routine); Ordered 04/24/20 Ordered By: Mary Roberson OB:DS Summary Summary Vaginal Delivery Method: Spontaneaous Episiotomy Description: Midline Laceration Description: Perineal Laceration Extension: Second Degree Contraception Discussed Contraception Discussed: Yes, [place] Gender-Baby A: Female weight: 8 lb 3.396 oz Status at Discharge Functional status at discharge: independent ambulation Overall status at discharge: patient is back to baseline Mental Status: mental status grossly normal Speech and Movement: speech and movement normal Mood: congruent mood Affect: normal affect Exam Physical Exam Vital signs: Temp Pulse Resp BP Pulse Ox 99.0 F 86 16 112/65 97 04/24/20 20:02 04/24/20 20:02 04/24/20 20:02 04/24/20 20:02 04/24/20 20:02 Constitutional Comments: Please see physical exam from progress note dated 04/25/2019 [facility] Medical History Contraception (08/01/17) False labor after 37 weeks of gestation without delivery (normal spontaneous vaginal delivery) Family History Mother Fibrocystic breast changes Father Essential hypertension Grandfather Stomach cancer maternal Maternal Uncle Myocardial infarction Social History Smoking/Tobacco Use Status: Never Smoking risk assessment performed?: Yes Alcohol Intake: never Drug use: Never Substance use type: does not use 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 Menstrual control method: pills History History 1 Para 0 Hx # Term Pregnancies 0 Multiple births 0 Hx # Pregnancies 0 Ectopic pregnancies 0 AB induced 0 Hx Number of Living Children 0 AB spontaneous 0 DS: Data Vitals/I&O Vitals and I&O: Vital Signs Temperature 99.0 F 04/24/20 20:02 Pulse 86 04/24/20 20:02 Pulse Rhythm Regular 04/24/20 08:25 Respiratory Rate 16 04/24/20 20:02 Respiratory Depth Normal 04/23/20 20:30 Blood Pressure 112/65 04/24/20 20:02 Blood Pressure Mean 80 04/24/20 20:02 Pulse Oximetry 97 04/24/20 20:02 Pain Level 6 04/25/20 07:48 Intake & Output 04/24/20 04/24/20 04/25/20 11:59 23:59 11:59 Intake Total 560 / 560 Output Total 700 / 700 Balance -140 / -140 Intake: IV 560 / 560 Output: Urine 700 / 700
== END 2020-04-25 11:10 | disposition home or self-care (01) | DRG 807 ==
PROVIDERS: Admitting Provider Obstetrics & Gynecology; PCP Nurse Practitioner Family; Visit Provider Obstetrics & Gynecology
DX: O99.344 Other mental disorders complicating childbirth (principal); Z37.0 Single live birth; F32.9 Major depressive disorder, single episode, unspecified; O70.1 Second degree perineal laceration during delivery; Z3A.40 40 weeks gestation of pregnancy
CPT/HCPCS: 36415; 85027; 86850; 86900; 86901; 99231; 99232; U0003; J2310; J2405; J3490

== ENCOUNTER 2021-11-07 15:40 | Outpatient (REF) | payer BC, SELFPAY ==
--- NOTE | 2021-11-07 09:20 | PAPFT_PTH ---
PATIENT: Torrie De La O LOC: [facility] U#:[id number] AGE/SX: 31/F ROOM: RE11/07/[address]: Mary Roberson DO : 1990 BED: DIS: 11/07/2021 SPEC #: [id number] RECD: 11/07/21 18:09 STATUS: [place] REQ #: [id number] KHALIDA: 11/07/21 09:[address]: Mary Roberson DEPT: [facility] Cytology RECD BY: Sommer Romero ENTERED: 11/07/21 18:09 SP TYPE: PAPFT OTHR DR: Amisha Lyons Tissues: 1 - CX/ENDOCX FOR PAP SMEARS Procedures: PAP THIN PREP/UVM Screening HPV DNA PROBE Comments: [id number]
== END 2021-11-07 15:41 | disposition home or self-care (01) ==
LOC: LBN 15:40
PROVIDERS: PCP Nurse Practitioner Family; Visit Provider Obstetrics & Gynecology
DX: Z12.4 Encounter for screening for malignant neoplasm of cervix (principal); Z11.51 Encounter for screening for human papillomavirus (HPV)
CPT/HCPCS: 88142; 87624

== ENCOUNTER 2022-11-15 19:52 | Outpatient (REF) | payer BC, SELFPAY ==
[2022-11-15 20:11] LABS: HCT 43.9 % (36.0-46.0); HGB 14.2 g/dL (11.2-15.7); MCH 29.9 pg (27.0-33.0); MCHC 32.3 % (32.0-36.0); MCV 92 fL (80-95); MPV 10.5 fL (8.0-11.0); Platelet Count 339 10^3/uL (130-400); RBC 4.75 10^6/uL (3.93-5.22); RDW 12.9 % (11.7-14.6); RDW-SD 44.1 fL; WBC 5.43 10^3/uL (4.4-10.8)
[2022-11-15 20:42] LABS: ALT 26 U/L (14-59); AST 16 U/L (15-37); Albumin 4.1 g/dL (3.4-5.0); Alkaline Phosphatase 87 U/L (46-116); Anion Gap 10.8 mmol/L (3-11); BUN 19 mg/dL (7-18); Bilirubin, Total 0.5 mg/dL (0.2-1.0); CO2 26.2 mmol/L (21.0-32.0); CREATININE 0.8 mg/dL (0.55-1.02); Calcium 9.1 mg/dL (8.5-10.1); Chloride 107 mmol/L (98-107); Estimated GFR 99.09 (mL/min/1.73m2); Glucose 91 mg/dL (74-106); Potassium 4.4 mmol/L (3.5-5.1); Sodium 144 mmol/L (136-145); TSH (W/Ref FT4) 0.97 uIU/mL (0.36-3.74); Total Protein 6.8 g/dL (6.4-8.2); Vitamin B12 1148 pg/mL (193-986)
== END 2022-11-15 19:53 | disposition home or self-care (01) ==
LOC: NCHCN 19:52
PROVIDERS: PCP Nurse Practitioner Family; Visit Provider Nurse Practitioner Family
DX: R53.83 Other fatigue (principal); F41.8 Other specified anxiety disorders; R20.2 Paresthesia of skin
CPT/HCPCS: 80053; 85027; 82607; 84443

== ENCOUNTER 2023-01-18 01:59 | Outpatient (CLI) | payer BC, SELFPAY ==
[2023-01-18 15:45] LABS: Abs Immature Grans 0.02 10^3/uL (0.0-0.06); Absolute Basophil Count 0.02 10^3/uL (0.0-0.2); Absolute Eosinophil Count 0.11 10^3/uL (0.0-0.7); Absolute Lymphocyte Count 1.91 10^3/uL (1.2-3.4); Absolute Monocyte Count 0.55 10^3/uL (0.1-0.8); Absolute Neutrophil Count 5.99 10^3/uL (1.2-6.7); Basophils % 0.2; Eosinophils % 1.3; HCT 39.3 % (36.0-46.0); HGB 13.2 g/dL (11.2-15.7); Immature Grans % 0.2; Lymphocytes % 22.2; MCHC 33.6 % (32.0-36.0); MCV 92 fL (80-95); MPV 9.9 fL (8.0-11.0); Monocytes % 6.4; Neutrophils % 69.7; Platelet Count 289 10^3/uL (130-400); RBC 4.26 10^6/uL (3.93-5.22); RDW 12.8 % (11.7-14.6); RDW-SD 43.4 fL
[2023-01-18 16:27] LABS: TSH (W/Ref FT4) 1.13 uIU/mL (0.36-3.74)
[2023-01-19 10:12] LABS: HIV-1/2 Ag & Ab Screen Negative (Negative)
[2023-01-21 10:59] LABS: Rubella IgG Ab (UVM) Positive (See Note); Varicella IgG Antibody Positive (See Note)
[2023-01-21 11:32] LABS: Hepatitis B Surface Ag Negative (Negative)
[2023-01-21 12:05] LABS: Hepatitis C Ab w Rflx HCV PCR Negative (Negative)
[2023-01-22 13:41] LABS: Syphilis IgG w/Reflex Nonreactive (Nonreactive)
== END 2023-01-18 02:00 | disposition home or self-care (01) ==
PROVIDERS: PCP Nurse Practitioner Family; Visit Provider Advanced Practice Midwife
DX: Z34.91 Encounter for supervision of normal pregnancy, unspecified, first trimester (principal)
CPT/HCPCS: 36415; 86787; 86803; 86850; 86900; 86901; 87340; 87389; 84443; 85025; 86762; 86780

== ENCOUNTER 2023-01-18 19:14 | Outpatient (REF) | payer BC, SELFPAY ==
[2023-01-18 18:47] LABS: *AMPHETAMINES SCREEN URINE Negative (Negative); *BARBITURATES SCREEN URINE Negative (Negative); *BENZODIAZEPINES SCREEN URINE Negative (Negative); Cannabinoids THC Negative (Negative); Cocaine Screen,Urine Negative (Negative); METHADONE URINE SCREEN Negative (Negative); OPIATES URINE SCREEN Negative (Negative); Tricyclic Antidepressants Negative (Negative)
[2023-01-29 13:24] LABS: Buprenorphine Negative ng/mL (Cutoff: 5.0); Norbuprenorphine Negative ng/mL (Cutoff: 2.5)
== END 2023-01-18 19:15 | disposition home or self-care (01) ==
LOC: LBN 19:14
PROVIDERS: PCP Nurse Practitioner Family; Visit Provider Advanced Practice Midwife
DX: Z34.91 Encounter for supervision of normal pregnancy, unspecified, first trimester (principal)
CPT/HCPCS: 80307; 80348; 87086

== ENCOUNTER 2023-02-06 15:29 | Outpatient (REF) | payer BC, SELFPAY ==
[2023-02-08 17:31] LABS: Chlamydia Result Negative (Negative); GC Result Negative (Negative)
== END 2023-02-06 15:30 | disposition home or self-care (01) ==
LOC: LBN 15:29
PROVIDERS: PCP Nurse Practitioner Family; Visit Provider Advanced Practice Midwife
DX: Z34.91 Encounter for supervision of normal pregnancy, unspecified, first trimester (principal); Z11.3 Encounter for screening for infections with a predominantly sexual mode of transmission
CPT/HCPCS: 87491; 87591

== ENCOUNTER → 2023-05-09 01:48 | Outpatient (CLI) | payer BC, SELFPAY ==
--- NOTE | 2023-05-09 05:45 | DI.US_ITS ---
Exam(s) US OB MATHEUS WEIGHT EXAM: US OB MATHEUS WEIGHT CLINICAL HISTORY: check placenta, growth,LOW LYING PLACENTA,o44.43. TECHNIQUE: Transabdominal obstetrical ultrasound was performed. COMPARISON: US US OB 2-3 TRIMESTER from 03/13/2023 FINDINGS: There is a single viable intrauterine gestation with cardiac activity identified-148 bpm The fetus is presently in variable position . Amniotic fluid: There is a normal amount of amniotic fluid with an MATHEUS of 22cm. Placental location: The placenta is anterior-fundal grade 1,with no evidence of placenta previa.The d istance from the tip of the placenta to the internal cervical os is approximately 5 cm on today's monisha dy. Dating parameters place this at approximately 27 weeks and 6 days gestational age, implying SILVER of 08/02/2023. BPD measures 27 weeks and 0 days HC measures 27 weeks and 5 days AC measures 30 weeks and 0 days FL measures 26 weeks and 6 days Three-vessel umbilical cord identified. Estimated weight is 1239 gm-2 pounds 12 ounces Fetus is at the 96th percentile on the Hadlock scale. IMPRESSION:: Viable intrauterine gestation, as described above. No evidence of placenta previa at this time. The placenta is anterior fundal. Fetus is at the 96th percentile on the Hadlock scale. DATA REPOSITORY:
== END ==
PROVIDERS: PCP Nurse Practitioner Family; Visit Provider Obstetrics & Gynecology
DX: Z34.93 Encounter for supervision of normal pregnancy, unspecified, third trimester (principal)
CPT/HCPCS: 76816

== ENCOUNTER 2023-05-17 02:46 | Outpatient (CLI) | payer BC, SELFPAY ==
[2023-05-17 08:12] LABS: Abs Immature Grans 0.04 10^3/uL (0.0-0.06); Absolute Basophil Count 0.02 10^3/uL (0.0-0.2); Absolute Eosinophil Count 0.07 10^3/uL (0.0-0.7); Absolute Lymphocyte Count 1.31 10^3/uL (1.2-3.4); Absolute Monocyte Count 0.65 10^3/uL (0.1-0.8); Absolute Neutrophil Count 5.89 10^3/uL (1.2-6.7); Basophils % 0.3; Eosinophils % 0.9; HCT 33.4 % (36.0-46.0); HGB 11.3 g/dL (11.2-15.7); Immature Grans % 0.5; Lymphocytes % 16.4; MCH 30.6 pg (27.0-33.0); MCHC 33.8 % (32.0-36.0); MCV 91 fL (80-95); MPV 9.5 fL (8.0-11.0); Monocytes % 8.1; Neutrophils % 73.8; Platelet Count 272 10^3/uL (130-400); RBC 3.69 10^6/uL (3.93-5.22); RDW 12.8 % (11.7-14.6); RDW-SD 42.4 fL; WBC 7.98 10^3/uL (4.4-10.8)
[2023-05-17 08:32] LABS: Glucose,1 Hr (Glucola) 85 mg/dL (80-140)
== END 2023-05-17 02:47 | disposition home or self-care (01) ==
LOC: LBO 02:46
PROVIDERS: PCP Nurse Practitioner Family; Visit Provider Obstetrics & Gynecology
DX: Z34.82 Encounter for supervision of other normal pregnancy, second trimester (principal)
CPT/HCPCS: 36415; 82950; 85025

== ENCOUNTER 2023-06-19 15:33 | Outpatient (CLI) | payer BC, SELFPAY ==
[2023-06-19 15:38] VITALS: BP 114/68; PULSE 84; TEMP 36.7
[2023-06-19 16:01] VITALS: BP 114/68; PULSE 84
[2023-06-19 16:17] LABS: Abs Immature Grans 0.03 10^3/uL (0.0-0.06); Absolute Basophil Count 0.02 10^3/uL (0.0-0.2); Absolute Eosinophil Count 0.05 10^3/uL (0.0-0.7); Absolute Lymphocyte Count 1.66 10^3/uL (1.2-3.4); Absolute Neutrophil Count 6.44 10^3/uL (1.2-6.7); Basophils % 0.2; Eosinophils % 0.6; HCT 32.4 % (36.0-46.0); HGB 10.8 g/dL (11.2-15.7); Immature Grans % 0.3; Lymphocytes % 18.7; MCH 30.3 pg (27.0-33.0); MCHC 33.3 % (32.0-36.0); MCV 91 fL (80-95); MPV 10.1 fL (8.0-11.0); Monocytes % 7.9; Neutrophils % 72.3; Platelet Count 272 10^3/uL (130-400); RBC 3.57 10^6/uL (3.93-5.22); RDW 13.1 % (11.7-14.6); RDW-SD 43.1 fL
[2023-06-19 16:30] LABS: ALT 13 U/L (14-59); AST 12 U/L (15-37); Albumin 2.5 g/dL (3.4-5.0); Alkaline Phosphatase 108 U/L (46-116); Anion Gap 11.1 mmol/L (3-11); BUN 10 mg/dL (7-18); Bilirubin, Total 0.3 mg/dL (0.2-1.0); CO2 23.9 mmol/L (21.0-32.0); CREATININE 0.5 mg/dL (0.55-1.02); Calcium 8.1 mg/dL (8.5-10.1); Chloride 102 mmol/L (98-107); Estimated GFR 126.14 (mL/min/1.73m2); Glucose 92 mg/dL (74-106); Potassium 3.9 mmol/L (3.5-5.1); Sodium 137 mmol/L (136-145)
--- NOTE | 2023-06-19 16:49 | W.OBNST ---
Date of service: 06/19/23 Time of Service: 16:50 NST Evaluation Reason for NST Reasons for Nonstress Test: OTHER, SEE COMMENT Reason for NST Other: Elevated B/P Gestational Age Gestational Age in Weeks and Days: 32 Weeks and 4Days Test and Monitor Explained Test/Monitor Explained: Test Explained and Monitor Explained Vital Signs Blood Pressure: 114/68 Pulse: 84 Temperature: 98.1 F Urine Results Urine Protein: Negative Urine Ketones: Negative Urine Glucose: Negative Urine Blood: Negative NST Information Date on Monitor: 06/19/23 Time on Monitor: 15:36 Date off Monitor: 06/19/23 Time off Monitor: 16:18 Total Time on Monitor: 42 NST Interventions: PO Hydration NST Evaluation Patient States Movement: Present FHR Baseline: 125 Variability: Moderate 6-25 bpm Accelerations: 15x15 Decelerations: None NST Results: Reactive Note Ultrasound Done: N/A. NST Note Note: Category 1, reactive NST. Laboratory studies are normal. Discharge home. Follow-up as scheduled. NST Reviewed and Verified by: Mary Roberson
[2023-06-19 16:50] VITALS: BP 114/68; PULSE 84; TEMP 36.7
[2023-06-19 17:04] LABS: COMMENT (LAB VIEW ONLY) 32.77 mg/dL; PROTEIN < 6.0 mg/dL
== END 2023-06-19 16:39 | disposition home or self-care (01) ==
LOC: BCD 15:34 → OBS 15:36
PROVIDERS: PCP Nurse Practitioner Family; Visit Provider Obstetrics & Gynecology
DX: R03.0 Elevated blood-pressure reading, without diagnosis of hypertension (principal); O99.891 Other specified diseases and conditions complicating pregnancy; Z3A.32 32 weeks gestation of pregnancy
CPT/HCPCS: 36415; 80053; 85027; 59025; 82565; 84156; 85025

== ENCOUNTER → 2023-06-28 00:15 | Outpatient (CLI) | payer BC, SELFPAY ==
--- NOTE | 2023-06-28 07:48 | DI.US_ITS ---
Exam(s) US OB MATHEUS WEIGHT EXAM: US OB MATHEUS WEIGHT CLINICAL HISTORY: growth,uterine size discrepancy,O26.849. TECHNIQUE: Transabdominal obstetrical ultrasound performed. COMPARISON: US US OB MATHEUS WEIGHT from 05/09/2023 FINDINGS: Number of fetuses: 1 position: CEPHALIC Placental location: There is a grade 1 anterior placenta. No evidence of previa. BIOMETRIC DATA: BPD: 8.61cm, 34weeks 5days HC: 31.26cm, 35weeks AC: 29.8cm, 33weeks 5days FL: 6.79cm, 34weeks 6days EFW: 2,399.48g, 5lb 4.37oz, 57% Composite Age: 34weeks 4days SILVER: 08/05/2023 Heart Rate: 150bpm Amniotic fluid index: 30.18cm. There is an increased amount of amniotic fluid present. IMPRESSION: 1. Single live intrauterine gestation as above. 2. Estimated weight is 2399gms. This is the 57th percentile. 3. Amniotic fluid index is 30.2 cm. Increased amniotic fluid. DATA REPOSITORY:
== END ==
PROVIDERS: PCP Nurse Practitioner Family; Visit Provider Obstetrics & Gynecology
DX: O26.843 Uterine size-date discrepancy, third trimester (principal); O40.3XX0 Polyhydramnios, third trimester, not applicable or unspecified; Z3A.34 34 weeks gestation of pregnancy
CPT/HCPCS: 76816

== ENCOUNTER 2023-07-15 15:53 | Outpatient (REF) | payer BC, SELFPAY | END 2023-07-15 15:54 | disposition home or self-care (01) | LOC: LBN 15:53 | PROVIDERS: PCP Nurse Practitioner Family; Visit Provider Obstetrics & Gynecology | DX: Z34.83 Encounter for supervision of other normal pregnancy, third trimester (principal); Z3A.36 36 weeks gestation of pregnancy; Z36.85 Encounter for antenatal screening for Streptococcus B | CPT/HCPCS: 87081 ==

== ENCOUNTER 2023-08-08 18:18 | Inpatient (IN) | payer BC, SELFPAY ==
--- NOTE | 2023-08-06 16:12 | W.PM.OBHPL1 ---
Date of service: 08/06/23 Time of Service: 16:12 Assessment and Plan Assessment and plan (1) care, subsequent : Status: Acute Assessment and plan: Term for labor induction at 40 weeks. Will plan misoprostol for cervical ripening, followed by Pitocin augmentation if warranted. Bedside ultrasound performed today confirms vertex position and cervix that is soft, 2 cm with a Ramirez score of 5. Risk benefits alternatives were discussed at length. All questions were answered. Risks were reviewed. OB-HPI Labor/Delivery History of Present Illness Chief Complaint: Scheduled Induction of Labor Indication for Induction: Other (Term, elective.). SILVER Calculator Estimated Delivery Date Method Current WG Current Estimate 08/08/23 LMP (Certain) 39w 5d Other Estimates 08/11/23 Ultrasound #1 39w 2d Comments: Labor induction at 40 weeks History of Present Expected Delivery Route/Plan MD care Specific Issues/Plan 1. LGA: EFW 96%ile at 28wk sono - plan repeat growth sono 34wks: 58%ile 2. Anterior placenta 2.2 cm from os, repeat at 28 weeks - resolved Declines cfDNA, CF, SMA. Pap UTD Review of Systems All systems reviewed & are unremarkable except as noted in HPI and below Constitutional Constitutional: Reports as per HPI Eyes Eyes: Reports as per HPI and Reports system reviewed and no additional complaints, except as documented ENT Ears, Nose, Mouth, and Throat: Reports system reviewed and no additional complaints, except as documented and Reports as per HPI Cardiovascular Cardiovascular: Reports system reviewed and no additional complaints, except as documented, Denies chest pain and Denies irregular heart rhythm Respiratory Respiratory: Reports system reviewed and no additional complaints, except as documented, Denies chest congestion and Denies cough Gastrointestinal Gastrointestinal: Reports system reviewed and no additional complaints, except as documented Genitourinary Genitourinary: Reports system reviewed and no additional complaints, except as documented Neurologic Neurologic: Reports system reviewed and no additional complaints, except as documented PFSH All Active Problems (Updated 06/12/23 @ 16:02 by Lorene Corley MD) care, subsequent (Acute) Anxiety (Chronic) Medical History (Updated 06/12/23 @ 16:02 by Lorene Corley MD) Low lying placenta nos or without hemorrhage, third trimester Acute hemorrhoid Family History (Updated 02/06/23 @ 15:18 by Janeth Singh CNM) Mother Fibrocystic breast changes Hyperlipidemia Father Essential hypertension Hypertension Grandfather Stomach cancer maternal Maternal Uncle Myocardial infarction Hypertension Social History Smoking/Tobacco Use Status: Never Smoking risk assessment performed?: Yes Alcohol Intake: never Drug use: Never Substance use type: does not use 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 Date GA/Weeks # Preg Succ Route Wgt Sex Labor Lgth Anesthesia Location Prov [facility] 04/23/20 40 No vaginal 8 lb Female 18 [facility] [place] 10/23/22 4 No SAB chemical Delivery Date: 04/23/20 Last Updated by: SID [place] [facility] Allergies and Home Medications Allergies Allergy/AdvReac Type Severity Reaction Status Date / Time pecan nut AdvReac Mild Hives Verified 08/06/23 15:38 walnut AdvReac Mild Hives Verified 08/06/23 15:38 seasonal allergies Allergy Intermediate Other (See Uncoded 08/06/23 15:38 Comment) Home Medications Medication Instructions Recorded Confirmed Type sertraline 25 mg tablet (Zoloft) 125 mg PO DAILY 12/04/22 08/05/23 History docusate sodium 100 mg capsule 100 mg PO DAILY 02/06/23 08/05/23 History (Colace) loratadine 10 mg tablet (Claritin) 10 mg PO DAILY 02/06/23 08/05/23 History [id number] 27 mg-folic pkg PO 02/06/23 08/05/23 History acid 800 mcg-dha 200 mg-lut.oral pack magnesium 250 mg tablet 250 mg PO DAILY 03/01/23 08/05/23 History Exam Physical Exam Vital signs: Vital signs are stable, heart tones are 135 Constitutional Constitutional: no acute distress Detailed Labor and Delivery Exam Dilation: 2 Effacement (%): 50 station: -3 Position: OA Cervix position: anterior Consistency: soft Ramirez Score: Cervical Points Exam 0 1 2 3 Dilation Closed 1-2cm 3-4 cm 5-6cm Effacement 0-30% 40-50% 60-70% 80% Consistency Firm Medium Soft Station -3 -2 -1,0 +1,+2 Position Posterior Mid Anterior RAMIREZ Score(Cervical Ripeness Score): 5 Amniotic Membrane Status: Intact HEENT Exam HEENT Exam: Normal Neck Exam Neck Exam: Normal Chest/Brest/Axilla Exam Chest Exam: Normal Respiratory Exam Respiratory Exam: Normal Cardiovascular Exam Cardiovascular Exam: Normal Abdominal Exam Abdominal Exam: Normal Extremities Exam Extremities Exam: Normal Back/Spine/Pelvis Exam Pelvis Adequate: Yes Skin Exam Skin Exam: Normal Psychiatric Exam Psychiatric Exam: Normal Risk Assessment Risk for Shoulder Dystocia Historical/Initial OB: NEGATIVE FOR: Pelvic Abnormality, Pre- BMI>30, Previous Shoulder Dystocia or Previous Macrosomia Delivery Plan @ 40 wks: Vaginal delivery Risk for Pre-Eclampsia Date Initiated/Initials: 01/18/23 KH Yes, if one or more: NEGATIVE FOR: Hx Pre-E/Gest HTN, Chronic HTN, Multiple Gestation, Pre-gestational DM, Renal Disease, Systemic Lupus or APA Syndrome Yes, if 2 or more: NEGATIVE FOR: Nulliparity, Age>= 35 yrs, >10yr btwn pregnancies, BMI>30, ethinicty, Mother/Sister w/ Pre-E or Previous IUGR Risk for Post- Hemorrhage Initial: NEGATIVE FOR: Multiple Gestation, Previous PPH, Known Clotting Deficiency, Grand Multiparity or Anticoagulation At Risk?: No Counseled re: Active Management: Yes Date/Initials: NAE 08/05/ Risks Reviewed Risks Reviewed Upon Admission: Yes
[2023-08-08] VITALS (9 sets, daily range): BP systolic 108–128; BP diastolic 61–79; PULSE 0–96; RESP 16; TEMP 36.6; O2SAT 99
[2023-08-08 18:36] LABS: HGB 11.7 g/dL (11.2-15.7); MCH 29.8 pg (27.0-33.0); MCHC 32.5 % (32.0-36.0); MCV 92 fL (80-95); MPV 10.2 fL (8.0-11.0); Platelet Count 239 10^3/uL (130-400); RBC 3.93 10^6/uL (3.93-5.22); RDW 14.5 % (11.7-14.6); RDW-SD 48.5 fL; WBC 9.33 10^3/uL (4.4-10.8)
--- NOTE | 2023-08-08 19:18 | W.PM.OBNL1 ---
Date of service: 08/08/23 Time of Service: 19:18 Informed Consent Informed Consent: Induction of Labor and Risk,Benefits,Alternatives Discussed Pelvic Exam Dilation: 1 Effacement (%): 50 station: -1 Cervix Position: mid Consistency: soft BISHOPS Score(Cervical Ripeness Score): 6 Vaginal Exam Presentation: Cephalic Contractions Monitor Mode: External Contraction Frequency(min): q 2-5min Contraction Duration(sec): 40-60 Intensity: Mild Fetus A Monitor: External (US) Heart Rate Baseline: 150 Presentation: Cephalic Variability: Moderate (6-25 BPM) Categories: Category I FHR Rhythm: Regular Characteristics: Normal Accelerations: 15 X 15 Decelerations: None Amniotic Membrane Status: Intact Assessment and Plan Assessment and plan (1) Encounter for induction of labor: Status: Acute Assessment and plan: Pt is agreeable to Misoprostol cervical ripening with intention to augment labor with Oxytocin if not in active labor by the morning. Pt's questions were answered and verbal informed consent obtained. Objective Temp Pulse Resp BP Pulse Ox 97.9 F 96 H 16 128/79 99 08/08/23 18:23 08/08/23 18:23 08/08/23 18:23 08/08/23 18:23 08/08/23 18:23 Laboratory Results WBC Cancelled 08/08/23 18:18 RBC Cancelled 08/08/23 18:18 Hgb Cancelled 08/08/23 18:18 Hct Cancelled 08/08/23 18:18 MCV Cancelled 08/08/23 18:18 MCH Cancelled 08/08/23 18:18 MCHC Cancelled 08/08/23 18:18 RDW Cancelled 08/08/23 18:18 Plt Count Cancelled 08/08/23 18:18 MPV Cancelled 08/08/23 18:18 ABO/Rh Cancelled 08/08/23 18:18 Antibody Screen Cancelled 08/08/23 18:18 Vital Signs Reviewed: Yes Subjective Patient Reports: No new Complaints Interval history since last seen: Pt presents for elective induction of labor at 40w0d EGA. Not feeling contractions. Pt reports good movement. No leaking of fluid. Results Hemoglobin/Hematocrit: Hgb Cancelled 08/08/23 18:18 Hct Cancelled 08/08/23 18:18 Procedure Procedures: Cervical Ripening Cervical Ripening: Misoprostol
[2023-08-08] MEDS: miSOPROStol 25 MCG TAB PO (19:51)
[2023-08-09] VITALS (238 sets, daily range): BP systolic 94–224; BP diastolic 37–158; PULSE 0–105; RESP 12–17; TEMP 36.7–36.9; O2SAT 92–100; BMI 36.4
[2023-08-09] MEDS: miSOPROStol 25 MCG TAB PO ×2 (00:16→04:24)
--- NOTE | 2023-08-09 07:34 | W.PM.OBNL1 ---
Date of service: 08/09/23 Time of Service: 07:34 Informed Consent Informed Consent: Induction of Labor and Risk,Benefits,Alternatives Discussed Pelvic Exam Dilation: 2 Effacement (%): 75 station: -2 Cervix Position: mid Consistency: soft BISHOPS Score(Cervical Ripeness Score): 5 Contractions Monitor Mode: External Contraction Duration(sec): q 2-3 Intensity: Mild Fetus A Monitor: External (US) Heart Rate Baseline: 140 Presentation: Cephalic Variability: Moderate (6-25 BPM) Categories: Category I FHR Rhythm: Regular Characteristics: Normal Accelerations: 15 X 15 Decelerations: None Amniotic Membrane Status: Intact Assessment and Plan Assessment and plan (1) Encounter for induction of labor: Status: Acute Assessment and plan: Oral misoprostol administered overnight. Little appreciable cervical change on morning exam. Will begin oxytocin augmentation of labor per protocol. Patient plans epidural for labor analgesia when needed Objective Temp Pulse Resp BP Pulse Ox 98.4 F 85 12 127/70 99 08/09/23 07:22 08/09/23 07:31 08/09/23 07:22 08/09/23 07:22 08/08/23 18:23 Laboratory Results WBC Cancelled 08/08/23 18:18 RBC Cancelled 08/08/23 18:18 Hgb Cancelled 08/08/23 18:18 Hct Cancelled 08/08/23 18:18 MCV Cancelled 08/08/23 18:18 MCH Cancelled 08/08/23 18:18 MCHC Cancelled 08/08/23 18:18 RDW Cancelled 08/08/23 18:18 Plt Count Cancelled 08/08/23 18:18 MPV Cancelled 08/08/23 18:18 ABO/Rh Cancelled 08/08/23 18:18 Antibody Screen Cancelled 08/08/23 18:18 Results Hemoglobin/Hematocrit: Hgb Cancelled 08/08/23 18:18 Hct Cancelled 08/08/23 18:18
[2023-08-09] MEDS: Normal Saline Flush 10 ML SYR IVP (08:29)
[2023-08-09] MEDS: Lactated Ringers 1,000 ML 125 ML IV (08:29)
[2023-08-09] MEDS: Oxytocin/Normal Saline 30 UNIT/500 ML BAG 2 UNITS IV (08:31)
--- NOTE | 2023-08-09 14:08 | ANES.PREOP_ITS ---
General Info Date of Service Date Performed: 08/09/23 Height: 5 ft 6 in Weight: 102.512 kg Body Mass Index (BMI): 36.4 Meds Allergies and Home Medications Allergies Allergy/AdvReac Type Severity Reaction Status Date / Time pecan nut AdvReac Mild Hives Verified 08/08/23 18:39 walnut AdvReac Mild Hives Verified 08/08/23 18:39 seasonal allergies Allergy Intermediate Other (See Uncoded 08/08/23 18:39 Comment) Home Medication Medication Instructions Recorded sertraline 25 mg tablet (Zoloft) 125 mg PO DAILY 12/04/22 docusate sodium 100 mg capsule 100 mg PO DAILY 02/06/23 (Colace) loratadine 10 mg tablet (Claritin) 10 mg PO DAILY 02/06/23 [id number] 27 mg-folic 1 pkg PO DAILY 02/06/23 acid 800 mcg-dha 200 mg-lut.oral pack magnesium 250 mg tablet 250 mg PO DAILY 03/01/23 Current Visit Medications: Current Medications Generic Name Dose Route Start Last Admin Trade Name Freq PRN Reason Stop Dose Admin Ringer's Solution 1,000 mls @ 200 mls/hr 08/08/23 18:45 IV INFUSION JOVANNA Ringer's Solution 1,000 mls @ 125 mls/hr 08/09/23 07:45 08/09/23 08:29 IV 125 mls/hr INFUSION JOVANNA Administration Oxytocin/Sodium Chloride 30 unit in 500 mls @ 2 mls/hr 08/09/23 07:45 08/09/23 12:55 Pitocin/Normal Saline IV 6 milliunits/min INFUSION JOVANNA 6 mls/hr Titration Protocol 2 MILLIUNITS/MIN IV Miscellaneous Supplies 1 each 08/09/23 07:45 Iv Access IV DIRECTED JOVANNA Misoprostol 25 mcg 08/08/23 19:00 08/09/23 04:24 Misoprostol 25 Mcg Tab PO 25 mcg Q4H JOVANNA Administration Sertraline HCl 125 mg 08/09/23 20:00 Sertraline 50 Mg Tab PO QPM JOVANNA Sodium Chloride 0 ml 08/09/23 07:37 08/09/23 08:29 Normal Saline Flush 10 Ml Syr IVP 10 ml PRN PRN Administration Sodium Chloride 0 ml 08/09/23 08:30 Normal Saline Flush 10 Ml Syr IVP BID JOVANNA Sodium Chloride 0 ml 08/09/23 07:37 Normal Saline 10 Ml Vial IJ DIRECTED PRN Terbutaline Sulfate 0.25 mg 08/08/23 18:38 Terbutaline 1 Mg/Ml Vial SC PRN PRN PFSH Active Problems Active Problems: Problem Status Onset Code Encounter for induction of labor Z34.90 care, subsequent Z34.80 Anxiety F41.9 Medical History Medical History (Updated 08/08/23 @ 19:28 by Lida Odom MD) Low lying placenta nos or without hemorrhage, third trimester Acute hemorrhoid Tobacco Smoking/Tobacco Use Status: Never Alcohol Alcohol Intake: never Substance Use Substance use: Never Substance use type: does not use Prental History History 2 3 Para 1 Hx # Term Pregnancies 1 Multiple births 0 Hx # Pregnancies 0 Ectopic pregnancies 0 AB induced 0 Hx Number of Living Children 1 AB spontaneous 1 Past Pregnancies Del. Date GA/Weeks # Preg Succ Route Wgt Sex Labor Lgth Anesth esia Location [facility] 04/23/20 40 No vaginal 3628.739 g Female [facility] 10/23/22 4 No S[facility] Delivery Date: 04/23/20 Last Updated by: SID Ashton Vital Signs and Lab Results Vital Signs Most Recent Vital Signs in EMR: Most Recent Vital Signs Temp Pulse Resp BP Pulse Ox 36.9 C 83 12 116/74 99 08/09/23 07:22 08/09/23 11:58 08/09/23 07:22 08/09/23 11:58 08/08/23 18:23 Lab Results 08/08/23 18:18 Blood Type / Crossmatch: 2 Antibody Screen NEGATIVE 08/08/23 Complete Blood Count: 2 White Blood Count 9.33 10^3/uL (4.4-10.8) 08/08/23 18:25 Red Blood Count 3.93 10^6/uL (3.93-5.22) 08/08/23 18:25 Hemoglobin 11.7 g/dL (11.2-15.7) 08/08/23 18:25 Hematocrit 36.0 % (36.0-46.0) 08/08/23 18:25 Platelet Count 239 10^3/uL (130-400) 08/08/23 18:25 Complete Metabolic Panel: 2 No Data to Display Liver Function Panel: 2 No Data to Display Coagulation Panel: 2 No Data to Display Cardiac Panel: 2 No Data to Display Arterial Blood Gas: 2 No Data to Display Venous Blood Gas: 2 No Data to Display Pancreas Panel: 2 No Data to Display Thyroid Panel: 2 No Data to Display Infectious Disease: 2 No Data to Display Blood Cultures: 2 No Data to Display Toxicology Panel: 2 No Data to Display Panel: 2 No Data to Display Anesthesia Assessment and Plan Anesthesia History Personal History: No History of Anesthesia Complications Family History: No Family History of Anesthesia Complications Exercise Tolerance Exercise Tolerance: Metabolic Equivalents>4 Pertinent Negatives Pertinent Negatives: No Symptoms of GERD, No Major Cardiovascular Symptoms or Complaints and No Major Pulmonary Symptoms or Complaints Cardiac & Pulmonary Exam Cardiac Exam: Normal S1/S2 Heart Sounds Pulmonary Exam: Clear Bilateral Breath Sounds Implantable Cardiac Device Does patient have a Pacemaker or an ICD?: No Airway Exam Known Difficult Airway: No Mallampati Class: 2 Mouth Opening: Normal (> 3cm) Thyromental Distance: Greater than 3 cm Neck Range of Motion: Full ROM Neck Circumference: Normal Teeth Condition: Normal Dentition ASA Classification ASA Score: ASA 2 Emergency Case?: No NPO Status NPO Status: Full Stomach Status Status: Confirmed Anesthesia Plan Resuscitation Status: Full Code Anesthesia Technique: Epidural Anesthesia Airway Planned: Natural Airway Monitors Used: Standard Monitors
[2023-08-09] MEDS: Lactated Ringers 1,000 ML 999 ML IV (15:00)
--- NOTE | 2023-08-09 15:12 | NUR.NOTE ---
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
--- NOTE | 2023-08-09 15:57 | ANES.NEUR_ITS ---
Epidural/Spinal Catheter Date Performed: 08/09/23 Procedure Start: 15:10 Procedure Stop: 15:45 Requesting Provider: Lida Odom Procedure Location: Obstetrics Reason Performed: Labor Epidural Standard Monitors Applied: Blood Pressure, SpO2 and See EMR for corresponding vital signs Patient Position: Sitting Sedation Given (Indicate Dose Given): No Sedation given Patient Mental Status: Awake Sterility: Hand Hygiene, Surgical Cap, Surgical Mask, Sterile Gloves, Sterile Drape/Sheet and Chlorhexidine Procedure Location: L2-L3 Interspace Epidural Needle: Tuohy 18 Gauge Needle Length: 3.5 Inch Needle Approach: Midline Epidural Procedure: Skin Prepped, Sterile Drape Placed, 1% Lidocaine to skin and subcutaneous tissue with 25G needle, Tuohy Needle placed, WARREN to Saline Used, Epidural Catheter Placed, Negative Heme, Negative CSF Flow and Tuohy Needle Removed Catheter Placed?: Catheter Placed Test Dose (Indicate Dose Given): 3ml 1.5% Lidocaine with 1:200K Epinephrine Given and Negative Test Dose Loss of Resistance Depth (cm): 8 Catheter depth at skin (cm): 15 Dressing: Sorbaview Dressing Placed, Tegaderm Applied, Mastisol Used and Dressing reinforced with T ape Epidural Provider Bolus (Indicate Dose Given): None Given Additives (Indicate Dose Given ): None Infusion Medication: Medication Infusion Began Medication Infusion: Ropivacaine 0.1% with Fentanyl 2mcg/ml Maintenance Infusion Rate (ml/hour): 10 PCEA Bolus Dose (ml): 3 Block Level: N/A Paresthesia: Right Paresthesia Duration: Transient Ultrasound: Not Used Number of Attempts (See previous attempts in note section): 2 Procedure Tolerated: No Complications Procedure Outcome: Successful Performed By: Coty Hahn
--- NOTE | 2023-08-09 16:54 | W.PM.OBNL1 ---
Date of service: 08/09/23 Time of Service: 16:54 Informed Consent Informed Consent: Augmentation of Labor, Induction of Labor, Regional Anesthesia and Risk,Benefits,Alternatives Discussed Pelvic Exam Dilation: 4 Effacement (%): 75 station: -1 Cervix Position: mid Consistency: soft Vaginal Exam Presentation: Cephalic Contractions Monitor Mode: External Contraction Frequency(min): q2-3 Contraction Duration(sec): 50-60 Intensity: Mild Fetus A Monitor: External (US) Heart Rate Baseline: 130 Presentation: Cephalic Variability: Moderate (6-25 BPM) Categories: Category I FHR Rhythm: Regular Characteristics: Normal Accelerations: 15 X 15 Decelerations: None Amniotic Membrane Status: Ruptured Rupture Method: Artifical Amniotic Fluid: Clear Date of Membrane Rupture: 08/09/23 Assessment and Plan Assessment and plan (1) Encounter for induction of labor: Status: Acute Assessment and plan: Pt had AROM of clear fluid prior to placement of epidural. Oxytocin infusion continues. Will recheck SVE in an hour, place IUPC if no cervical change. Objective Temp Pulse Resp BP Pulse Ox 98.4 F 78 12 121/77 97 08/09/23 07:22 08/09/23 16:51 08/09/23 07:22 08/09/23 16:50 08/09/23 16:50 Laboratory Results WBC Cancelled 08/08/23 18:18 RBC Cancelled 08/08/23 18:18 Hgb Cancelled 08/08/23 18:18 Hct Cancelled 08/08/23 18:18 MCV Cancelled 08/08/23 18:18 MCH Cancelled 08/08/23 18:18 MCHC Cancelled 08/08/23 18:18 RDW Cancelled 08/08/23 18:18 Plt Count Cancelled 08/08/23 18:18 MPV Cancelled 08/08/23 18:18 ABO/Rh Cancelled 08/08/23 18:18 Antibody Screen Cancelled 08/08/23 18:18 Vital Signs Reviewed: Yes Subjective Patient Reports: New Complaints (incomplete relief from labor epidural. Pt's R leg is numb.) Interval history since last seen: Pt declined bolus after placement of epidural. Tolerating contractions. Results Hemoglobin/Hematocrit: Hgb Cancelled 08/08/23 18:18 Hct Cancelled 08/08/23 18:18
[2023-08-09] MEDS: Lidocaine 1% Multi-Dose 20 ML VIAL IJ (19:45)
[2023-08-09] MEDS: Ibuprofen 600 MG TAB PO (23:13)
[2023-08-09] MEDS: Acetaminophen 325 MG TAB 650 MG PO (23:14)
[2023-08-09] MEDS: Sertraline 50 MG TAB 125 MG PO (23:14)
[2023-08-10] MEDS: Acetaminophen 325 MG TAB 650 MG PO ×4 (03:42→17:01)
[2023-08-10] MEDS: Ibuprofen 600 MG TAB PO ×3 (06:17→18:13)
[2023-08-10 07:38] VITALS: BP 123/78; PULSE 82; RESP 18; TEMP 36.9
--- NOTE | 2023-08-10 08:04 | OBVDS_ITS ---
Date of service: 08/10/23 Time of Service: 08:19 OB Labor/ Delivery Information Baby A Delivery Delivery Method: Spontaneaous Providers Doctor: Lida Odom Mechanical Engineering Intern: Coty Hahn Nurse: Natasha Mello Nurse: Priyanka Dunn Other: Josue Labor/Delivery Information Number of Babies in Womb: 1 Steroids Given: None Reason Steroids Not Administered: N/A Group Beta Strep: Negative Antibiotics Administered: No Rubella Status: Immune Blood Type: A+ Varicella Immunity: Immune Shoulder Dystocia: No Stages of Labor Onset of Labor Date: 08/08/23 Onset of Labor Time: 19:51 Complete Dilatation Date: 08/09/23 Complete Dilatation Time: 18:30 Labor - Stage 1 Duration: 22 hours and 39 minutes ROM Baby A: 08/09/23 ROM Baby A: 13:08 ROM Total Time- Baby A: [id number] Infant Delivery Date-Baby A: 08/09/23 Delivery Time-Baby A: 19:33 Labor Stage 2 Duration: 1 hours and 3 minutes Placenta Delivery Date-Baby A: 08/09/23 Placenta Delivery Time-Baby A: 19:40 Labor-Stage 3 Duration: 7 minutes Total Length of Labor-Baby A: 23 hours and 42 minutes Placenta Cultured: No Placenta Status: Delivered Baby A Infant Gender: Male Gestational Status: Term (39-41.6 wks) Gestational Age in Weeks/Days: 40 Weeks and 1 Days weight: 9 lb 6.443 oz Length-Baby A: 21.5 in Head Circumference-Baby A: 14 in Score-1 Minute Interval(Baby A) Heart Rate-1 minute: 100 BPM or Greater Respiratory Effort- 1 minute: Slow Respiration/Weak Cry Muscle Tone-1 minute: Minimal Flexion/Extension Reflex Response-1 minute: Prompt Response Color-1 minute: Bluish Hands or Feet Total Score-1 minute: 7 Score-5 Minute Interval(Baby A) Heart Rate- 5 minute: 100 BPM or Greater Respiratory Effort-5 minute: Spontaneous/Strong Cry Muscle Tone-5 minute: Minimal Flexion/Extension Reflex Response-5 minute: Prompt Response Color-5 minute: Bluish Hands or Feet Total Score- 5 minute: 8 Note: will be named HugoFaizan
--- NOTE | 2023-08-10 10:48 | W.ANESPOSTOP ---
Postoperative Evaluation Date, Time and Location Date Performed: 08/09/23 Time Performed: 20:45 Patient Location: Obstetrics Vital Signs Most Recent Imported Vital Signs: Most Recent Vital Signs Temp Pulse Resp BP Pulse Ox 36.9 C 82 18 123/78 99 08/10/23 07:38 08/10/23 07:38 08/10/23 07:38 08/10/23 07:38 08/09/23 23:57 Pain Score Most Recent Pain Score: Most Recent Pain Score Pain Level 0 08/08/23 18:23 Assessment Mental Status: Awake (Alert & Oriented to Patient Baseline) Airway and Respiratory Function: Patent airway with normal (patient baseline) respiratory exam Cardiovascular Function: Hemodynamically Stable Hydration Status: Adequately Hydrated Nausea & Vomiting: No Nausea or Vomiting Pain: Pt. Denies Any Pain Peripheral Nerve Block: Patient did not receive a nerve block
--- NOTE | 2023-08-10 11:32 | DSE_ITS ---
Date of service: 08/10/23 Time of Service: 11:33 DS: Diagnosis Discharge Diagnosis (1) Encounter for induction of labor: Status: Acute (2) (normal spontaneous vaginal delivery): Status: Inactive Asessment and Plan: day #1 status postnormal spontaneous vaginal delivery. Discharge home today. Follow-up in the office in 2 and 6 weeks. circumcision has been performed. Breast-feeding without difficulty. Discharge Plan Disposition Patient Disposition: Home Condition: Good Discharge Details Reason For Visit: at 40 weeks, labor induction Admit Date/Time: 08/08/23 18:12 Admit Provider: Lida Odom Attending Provider: Lida Odom Primary Care Provider: Amisha Lyons Hospital Course Hospital Course: Patient was admitted for labor induction at 40 weeks gestation. She had cervical ripening, followed by Pitocin augmentation. She received an epidural for pain control and went on to have a vaginal delivery of a viable male infant named Hugo. She had uncomplicated course and was discharged home day #1 ambulating, tolerating regular diet and oral pain medication with stable vital signs. circumcision was performed at parents request. Home Meds and New Rx's Prescriptions: New ibuprofen 800 mg tablet 800 mg PO Q8H PRNQty: 60 1RF No Action magnesium 250 mg tablet 250 mg PO DAILY PNV [id number] 27 mg iron-800 mcg-200 mg combo pack 1 pkg PO DAILY docusate sodium [Colace] 100 mg capsule 100 mg PO DAILY loratadine [Claritin] 10 mg tablet 10 mg PO DAILY sertraline [Zoloft] 25 mg tablet 125 mg PO DAILY Discharge Instructions Stand Alone Forms: BC Instructions, BC Post Vaginal Deliver Activity:: Pelvic rest Equipment/Supplies:: No Equipment Needed Diet:: As Tolerated Discharge Orders Discharge Orders: Discharge Order (Routine); Ordered 08/10/23 Ordered By: Antoni Roberson OB:DS Summary Summary Vaginal Delivery Method: Spontaneaous Episiotomy Description: None Laceration Description: Perineal Laceration Extension: First Degree Contraception Discussed Contraception Discussed: Yes, Gender-Baby A: Male weight: 9 lb 6.443 oz Status at Discharge Functional status at discharge: independent ambulation Overall status at discharge: patient is progressing back to baseline Mental Status: mental status grossly normal Speech and Movement: speech and movement normal Mood: congruent mood Affect: normal affect Quality:SDOH Health Related Social Needs: No Data to Display Exam Physical Exam Vital signs: Temp Pulse Resp BP Pulse Ox 98.4 F 82 18 123/78 99 08/10/23 07:38 08/10/23 07:38 08/10/23 07:38 08/10/23 07:38 08/09/23 23:57 Narrative: See physical exam from progress note dated 08/10/2023. PFSH All Active Problems Encounter for induction of labor (Acute) care, subsequent (Acute) Anxiety (Chronic) Medical History Low lying placenta nos or without hemorrhage, third trimester Acute hemorrhoid Family History Mother Fibrocystic breast changes Hyperlipidemia Father Essential hypertension Hypertension Grandfather Stomach cancer maternal Maternal Uncle Myocardial infarction Hypertension Social History Smoking/Tobacco Use Status: Never Smoking risk assessment performed?: Yes Alcohol Intake: never Drug use: Never Substance use type: does not use Housing: house current occupation: Therapist at [employer] Do you feel safe at home: Yes Do you feel safe in your relationship?: Yes Female Reproductive History Menstrual control method: pills History History 3 Para 1 Hx # Term Pregnancies 1 Multiple births 0 Hx # Pregnancies 0 Ectopic pregnancies 0 AB induced 0 Hx Number of Living Children 1 AB spontaneous 1 Past Pregnancies Del. Date GA/Weeks # Preg Succ Route Wgt Sex Labor Lgth Anesth esia Location Prov [facility] 04/23/20 40 No vaginal 8 lb Female [facility] 10/23/22 4 No [facility] Delivery Date: 04/23/20 Last Updated by: SID Ashotn DS: Data Vitals/I&O Vitals and I&O: Vital Signs Temperature 98.4 F 08/10/23 07:38 Temperature Source Oral 08/10/23 07:38 Pulse 82 08/10/23 07:38 Pulse Rhythm Regular 08/10/23 07:38 Respiratory Rate 18 08/10/23 07:38 Respiratory Depth Normal 08/09/23 23:20 Blood Pressure 123/78 08/10/23 07:38 Blood Pressure Mean 93 08/10/23 07:38 Pulse Oximetry 99 08/09/23 23:57 Oxygen Delivery Method Room Air 08/08/23 18:23 Oxygen Flow Rate 0 08/08/23 18:23 Pain Level 0 08/08/23 18:23 Intake & Output 08/09/23 08/09/23 08/10/23 11:59 23:59 11:59 Intake Total 512.600 / 2000.000 1487.400 / 2000.000 Output Total 950 / 2300 1350 / 2300 500 / 500 Balance -437.400 / -300.000 137.400 / -300.000 -500 / -500 Weight 226 lb Intake: IV 12.600 / 6944.595 0926.400 / 1500.000 Oral 500 / 500 Output: Urine 950 / 2300 1350 / 2300 500 / 500 Other: Urine Color Yellow Yellow Urine Appearance Clear
== END 2023-08-10 20:25 | disposition home or self-care (01) | DRG 807 ==
PROVIDERS: Obstetrics & Gynecology; Admitting Provider Obstetrics & Gynecology Gynecology; PCP Nurse Practitioner Family; Visit Provider Obstetrics & Gynecology Gynecology
DX: O36.63X0 Maternal care for excessive fetal growth, third trimester, not applicable or unspecified (principal); Z37.0 Single live birth; Z3A.40 40 weeks gestation of pregnancy; O99.344 Other mental disorders complicating childbirth; F41.9 Anxiety disorder, unspecified
CPT/HCPCS: 85027; 86850; 86900; 86901; 59200; J2003; J3490

== ENCOUNTER 2025-01-29 13:32 | Outpatient (REF) | payer BC, SELFPAY ==
--- NOTE | 2025-01-29 13:40 | PAPFT_PTH ---
PATIENT: Torrie De La O LOC: [facility] U#:[id number] AGE/SX: 34/F ROOM: RE01/29/[address]: Mary Roberson DO : 1990 BED: DIS: 01/29/2025 SPEC #: [id number] RECD: 01/29/25 16:33 STATUS: [place] REQ #: [id number] KHALIDA: 01/29/25 13:[address]: Mary Roberson DEPT: [facility] Cytology RECD BY: Sommer Romero ENTERED: 01/29/25 16:33 SP TYPE: PAPFT OTHR DR: JOHNNIE SIMPSON NP Tissues: 1 - CX/ENDOCX FOR PAP SMEARS Procedures: PAP THIN PREP/[facility] Screening HPV DNA PROBE Comments: [id number] (HPV 16 & 18/45)
== END 2025-01-29 13:33 | disposition home or self-care (01) ==
LOC: LBN 13:32
PROVIDERS: PCP Nurse Practitioner Family; Visit Provider Obstetrics & Gynecology
DX: Z12.4 Encounter for screening for malignant neoplasm of cervix (principal)
CPT/HCPCS: 88142; 87624